=== PATIENT | male | born 1985 | race Caucasian/White ===

== ENCOUNTER 2020-12-29 16:10 | Emergency (ER) | payer OTHER, SELFPAY ==
--- NOTE | ~2020-12-29 | CT_ITS ---
EXAMINATION: CT ANGIOGRAM OF THE CHEST WITH AND WITHOUT CONTRAST (CT PULMONARY ANGIOGRAM FOR PE) CLINICAL INFORMATION: Reason for Exam elevated D-dimer. Rule out PE, sob x 2 days COMPARISON: Chest radiograph earlier today TECHNIQUE: Prior to contrast administration, noncontrast localization images were obtained. Subsequently, multidetector volumetric imaging was performed from the thoracic inlet to below the diaphragms following the administration of 65 mL Omnipaque 350 intravenous contrast. No contrast reaction reported Sagittal, coronal, and MIP oblique sagittal reformatted images were obtained on the CT workstation, uploaded to PACS, and reviewed. This CT examination was performed using dose optimization techniques as appropriate, variously including the following: *Automated exposure control *Adjustment of mA and/or kV according to patient size (this includes techniques or standardized protocols for targeted exams where dose is matched to indication/reason for exam; i.e. extremities or head) *Use of iterative reconstruction technique Total exam dose-length product 277 mGy-cm FINDINGS: QUALITY OF STUDY/CONTRAST BOLUS: Satisfactory. PULMONARY ARTERIES: No central or segmental pulmonary emboli. THORACIC AORTA: No aneurysm or dissection. LUNG: No focal consolidation, nodules or masses. PLEURA: No pleural effusion or pneumothorax. MEDIASTINUM: Normal heart size. No pericardial effusion. No hilar or mediastinal lymphadenopathy. No evidence of septal bowing or right heart strain. CHEST WALL/AXILLA: No axillary or internal mammary lymphadenopathy. OSSEOUS STRUCTURES: No acute or suspicious osseous abnormality. UPPER ABDOMEN: Unremarkable. No reflux of contrast into the hepatic veins to suggest elevated right heart pressures. CT/CT angio chest PE protocol IMPRESSION: No evidence of pulmonary emboli VTE: negative
--- NOTE | ~2020-12-29 | XR_ITS ---
EXAMINATION: XR CHEST CLINICAL INFORMATION: Shortness of breath COMPARISON: None TECHNIQUE: Frontal view of the chest was obtained. FINDINGS: No significant abnormality is noted involving the heart, lungs, mediastinum, bony thorax or soft tissues. XR/XR chest 1V IMPRESSION: Unremarkable examination.
[2020-12-29 16:40] VITALS: BP 158/99; PULSE 72; RESP 16; TEMP 37.6; O2SAT 98; BMI 28.3
--- NOTE | 2020-12-29 20:01 | ECG_ITS ---
Test Reason : DYSPNEA Blood Pressure : / mmHG Vent. Rate : 065 BPM Atrial Rate : 065 BPM P-R Int : 124 ms QRS Dur : 096 ms QT Int : 416 ms P-R-T Axes : -37 042 033 degrees QTc Int : 432 ms Normal sinus rhythm Normal ECG When compared with ECG of 10-JUL-2019 05:57, Vent. rate has decreased BY 39 BPM Referred By: Donaldo Witt Electronically Signed By:LAUREL VOGT
[2020-12-29 21:40] LABS: MANUAL DIFF FLAG NO
[2020-12-29 21:46] LABS: Basophils Absolute Auto 0.1 X10*3/uL (0.0-0.2); Basophils Percent Auto 1.1 % (0-2); Eosinophils Absolute Auto 0.1 X10*3/uL (0.0-0.4); Eosinophils Percent Auto 1.1 % (0-4); Hematocrit 43.7 % (42-52); Hemoglobin 14.8 g/dl (14.0-18.0); Imm Gran Abs Auto 0.02 X10*3/uL (0.00-0.03); Imm Gran Pct Auto 0.2 % (0.0-0.4); Lymphocytes Absolute Auto 2.8 X10*3/uL (1.2-4.9); Lymphocytes Percent Auto 33.2 % (20-40); Mean Corpuscular HGB Conc 33.9 g/dl (31.0-36.0); Mean Corpuscular Hemoglobin 29.8 pg (27.0-33.0); Mean Corpuscular Volume 87.9 fL (80-98); Monocytes Absolute Auto 0.8 X10*3/uL (0.1-1.2); Monocytes Percent Auto 8.9 % (2-11); Neutrophils Absolute Auto 4.7 X10*3/uL (2.0-8.3); Neutrophils Percent Auto 55.5 % (45-73); Platelet Count 474 X10*3/uL (160-400); Red Blood Count 4.97 X10*6/uL (4.60-5.80); Red Cell Distribution Width 14.4 % (11.0-16.0); White Blood Count 8.4 X10*3/uL (4.8-10.8)
[2020-12-29 21:52] LABS: Prothrombin Time 11.4 SEC (9.9-13.0)
[2020-12-29 21:54] LABS: Partial Thromboplastin Time 32.2 SEC (24.1-38.0)
[2020-12-29 21:54] LABS: Appearance Urine CLEAR; Color Urine YELLOW; Glucose Urine UA NEG (NEG); Leukocyte Esterase Urine NEG (NEG); Nitrite Urine NEG (NEG); PH 6.5 (5.0-8.0); Urine Blood NEG (NEG); Urine Ketones >=80 MG/DL (NEG); Urine Protein NEG (NEG-TRACE)
[2020-12-29 21:55] LABS: D Dimer 363 NG/ML
[2020-12-29 21:58] LABS: COVID-19 Test Negative (Negative)
[2020-12-29 22:02] LABS: Alanine Aminotransferase 29 U/L (0-40); Alkaline Phosphatase 117 U/L (39-117); Anion Gap 19 (12-20); Aspartate Amino Transferase 29 U/L (5-37); Bilirubin Direct 0.3 mg/dL (0.0-0.5); Bilirubin Total 0.8 mg/dL (0.0-1.0); Blood Urea Nitrogen 7 mg/dL (9-16); Calcium 10.3 mg/dL (8.4-10.2); Carbon Dioxide 27 mmol/L (22-29); Chloride 99 mmol/L (96-108); Creatinine Clr Calc Pharmacy 117.8; Estimated Glomerular Filt Rate > 60; Glucose Random 77 mg/dL (60-115); Lipase 17 U/L (8-78); Sodium 140 mmol/L (135-145); Total Protein 7.8 g/dL (6.5-8.0)
[2020-12-29 22:07] LABS: B Type Natriuretic Peptide < 10 pg/mL (<100); Troponin-I High Sensitivity < 3.5 ng/L (<3.5-35.0)
[2020-12-29 22:45] VITALS: BP 172/107; PULSE 61; O2SAT 98
[2020-12-29] MEDS: LORazepam 1 MG TABLET PO (23:02)
[2020-12-29] MEDS: iohexoL 350 MG/ML 100 ML INFUS..BTL 65 ML IV (23:21)
--- NOTE | 2020-12-29 23:32 | ECG_ITS ---
Test Reason : REPEAT Blood Pressure : / mmHG Vent. Rate : 061 BPM Atrial Rate : 061 BPM P-R Int : 164 ms QRS Dur : 094 ms QT Int : 426 ms P-R-T Axes : 030 031 029 degrees QTc Int : 428 ms Normal sinus rhythm Normal ECG When compared with ECG of 29-DEC-2020 20:49, No significant change was found Referred By: Donaldo Witt Electronically Signed By:LAUREL VOGT
--- NOTE | 2020-12-29 23:41 | ED.GENADULT ---
HPI - General Adult General Chief complaint: Dyspnea Stated complaint: SOB/Body aches Time Seen by Provider: 12/29/20 19:53 Source: patient Mode of arrival: ambulatory Limitations: no limitations History of Present Illness HPI narrative: Patient state SOB for 2 days describes as anxiety and feels like he has to catch his breath. patient admits stop drinking alcohol for at least a day, but does not want detox. patient thinks he is just anxious, but wants his SOB to be evalauted. patient admits to past medical history of anxiety. Patient states no chest pain,calf pain, fever, leg swelling or chills. Related Data Previous Rx's Medication Instructions Recorded hydroxyzine HCl 25 mg tablet 25 mg PO TID PRN #21 tab 12/29/20 Allergies Allergy/AdvReac Type Severity Reaction Status Date / Time No Known Allergies Allergy Unverified 12/25/19 16:45 Review of Systems Review of Systems: Yes all other systems are reviewed and are negative Constitutional: Constitutional: Reports as per HPI and Reports no additional constitutional complaints Eyes: Eyes: Reports as per HPI and Reports no additional eye complaints ENT: Reports system reviewed and no additional complaints, except as documented and Reports as per HPI Cardiovascular: Cardiovascular: Reports as per HPI, Reports no additional cardiovascular complaints and Reports dyspnea Respiratory: Respiratory: Reports as per HPI, Reports no additional respiratory complaints and Reports dyspnea Gastrointestinal: Gastrointestinal: Reports as per HPI, Reports no additional gastrointestinal complaints and Reports nausea Musculoskeletal: Musculoskeletal: Reports no additional musculoskeletal complaints and Reports as per HPI Integumentary/Breasts: Skin/Breast: Reports system reviewed and no additional complaints, except as docu and Reports as per HPI Neurologic: Reports system reviewed and no additional complaints, except as documented and Reports as per HPI Comments: anxeity [facility] Social History Social History Patient Tobacco Use Status: Never used Tobacco Advance Directives: No Advance Directives Information Provided: Yes Physical Exam Vital Signs: Vital Signs: Last Vital Signs Temp 99.6 F 12/29/20 16:40 Pulse 61 12/29/20 22:45 Resp 16 12/29/20 16:40 BP 172/107 H 12/29/20 22:45 Pulse Ox 98 12/29/20 22:45 Body Mass Index 28.3 Const: General: cooperative, healthy appearing, comfortable, no acute distress, well developed, alert, awake and Physically active Orientation/consciousness: patient oriented x3 HENMT: Head: Yes normal to inspection, Yes No palpable skull fracture present, Yes normocephalic and Yes atraumatic Eyes: General: appearance normal, both eyes and all related structures Neck: Neck: Yes normal visual inspection, Yes full ROM, Yes no lymphadenopathy, Yes no meningeal signs, Yes trachea midline, Yes supple and No tender Chest: Chest palpation & inspection: normal inspection of the chest and normal palpation of entire chest wall Resp: Effort & Inspection: normal respiratory effort and able to speak in complete sentences Auscultation: clear to auscultation bilaterally Cardio: Jugular venous distension: no JVD Heart sounds: S1 normal heart sound present and S2 normal heart sound present GI: Inspection: Yes normal to inspection and No abdominal wall ecchymosis Palpation (GI): Soft to palpation, not firm, nontender, no guarding and not rigid : General: No CVA tenderness and Yes no CVA tenderness Back/Spine/Pelvis: Back: no CVA tenderness, No CVA tenderness and No back tenderness Skin: General skin exam: no rashes or lesions noted and elasticity normal Neuro: General: patient oriented x3, gait normal, no meningeal signs and CN's II-XI intact bilaterally Cranial nerves: Yes CN's II-XII intact bilaterally Extrem: Other: lower extremities negative for swelling, calf pain, or pitting edema. negative tremors of extremities. General: Yes normal to inspection and Yes full ROM Psych: Appearance: grossly normal, well kempt and not disheveled Course Course Course Narrative: Atypical presentation of SOB, most likely anxiety will do labs. Reevaluation(s) Reevaluation #1: EKG negatmive. Troponin negative. BNP negative. Covid negative. UA normal. labs normal, except D-dimer. patient not in respiratory distress. D-dimer elevated. Sent for Chest CTA. Time: 23:49 Reevaluation #2: CHest CTA came back negative. howardn does not want any detox program presently. Chest CT came back negative for PE. Patient states he felt better and less anxious after receiving ativan. patient will follow up with PCP. Time: 00:08 Medical Decision Making MDM Narrative Medical decision making narrative: Anxiety Lab Data Result diagrams: 12/29/20 21:34 12/29/20 21:34 Labs: Lab Results 12/29/20 12/29/2021 Range/Units 21:34 21:34 21:34 WBC 8.4 (4.8-10.8) X10*3/uL RBC 4.97 (4.60-5.80) X10*6/uL Hgb 14.8 (14.0-18.0) g/dl Hct 43.7 (42-52) % MCV 87.9 (80-98) fL MCH 29.8 (27.0-33.0) pg MCHC 33.9 (31.0-36.0) g/dl RDW 14.4 (11.0-16.0) % Plt Count 474 H (160-400) X10*3/uL MPV 9.0 L (9.4-12.4) fL Immature Gran % (Auto) 0.2 (0.0-0.4) % Neut % (Auto) 55.5 (45-73) % Lymph % (Auto) 33.2 (20-40) % Harvey % (Auto) 8.9 (2-11) % Eos % (Auto) 1.1 (0-4) % Baso % (Auto) 1.1 (0-2) % Lymph # (Auto) 2.8 (1.2-4.9) X10*3/uL Harvey # (Auto) 0.8 (0.1-1.2) X10*3/uL Eos # (Auto) 0.1 (0.0-0.4) X10*3/uL Baso # (Auto) 0.1 (0.0-0.2) X10*3/uL Abs Immat Gran (auto) 0.02 (0.00-0.03) X10*3/uL Absolute Neuts (auto) 4.7 (2.0-8.3) X10*3/uL Absolute Nucleated RBC 0.000 (0.0-0.012) X10*3/uL Nucleated RBC % (auto) 0.0 (0.0-0.2) /100WBC PT (9.9-13.0) SEC INR (0.9-1.1) APTT (24.1-38.0) SEC D-Dimer NG/ML Sodium 140 (135-145) mmol/L Potassium 5.0 (3.3-5.1) mmol/L Chloride 99 (96-108) mmol/L Carbon Dioxide 27 (22-29) mmol/L Anion Gap 19 (12-20) BUN 7 L (9-16) mg/dL Creatinine 0.83 (0.5-1.4) mg/dL Estim Creat Clear Calc 117.8 Estimated GFR > 60 Random Glucose 77 (60-115) mg/dL Calcium 10.3 H (8.4-10.2) mg/dL Total Bilirubin (0.0-1.0) mg/dL Direct Bilirubin (0.0-0.5) mg/dL AST (5-37) U/L ALT (0-40) U/L Alkaline Phosphatase (39-117) U/L Troponin I High Sens < 3.5 (<3.5-35.0) ng/L B-Natriuretic Peptide < 10 (<100) pg/mL Total Protein (6.5-8.0) g/dL Albumin (3.5-5.0) g/dL Lipase (8-78) U/L Urine Color Urine Appearance Urine pH (5.0-8.0) Ur Specific [place] (1.005-1.025) Urine Protein (NEG-TRACE) MG/DL Urine Glucose (UA) (NEG) MG/DL Urine Ketones (NEG) MG/DL Urine Blood (NEG) Urine Nitrite (NEG) Ur Leukocyte Esterase (NEG) COVID-19 (ROSI) (Negative) COVID-19 Clin Com 12/29/20 12/29/20 12/29/20 Range/Units 21:34 21:34 21:34 WBC (4.8-10.8) X10*3/uL RBC (4.60-5.80) X10*6/uL Hgb (14.0-18.0) g/dl Hct (42-52) % MCV (80-98) fL MCH (27.0-33.0) pg MCHC (31.0-36.0) g/dl RDW (11.0-16.0) % Plt Count (160-400) X10*3/uL MPV (9.4-12.4) fL Immature Gran % (Auto) (0.0-0.4) % Neut % (Auto) (45-73) % Lymph % (Auto) (20-40) % Harvey % (Auto) (2-11) % Eos % (Auto) (0-4) % Baso % (Auto) (0-2) % Lymph # (Auto) (1.2-4.9) X10*3/uL Harvey # (Auto) (0.1-1.2) X10*3/uL Eos # (Auto) (0.0-0.4) X10*3/uL Baso # (Auto) (0.0-0.2) X10*3/uL Abs Immat Gran (auto) (0.00-0.03) X10*3/uL Absolute Neuts (auto) (2.0-8.3) X10*3/uL Absolute Nucleated RBC (0.0-0.012) X10*3/uL Nucleated RBC % (auto) (0.0-0.2) /100WBC PT 11.4 (9.9-13.0) SEC INR 1.0 (0.9-1.1) APTT 32.2 (24.1-38.0) SEC D-Dimer 363 NG/ML Sodium (135-145) mmol/L Potassium (3.3-5.1) mmol/L Chloride (96-108) mmol/L Carbon Dioxide (22-29) mmol/L Anion Gap (12-20) BUN (9-16) mg/dL Creatinine (0.5-1.4) mg/dL Estim Creat Clear Calc Estimated GFR Random Glucose (60-115) mg/dL Calcium (8.4-10.2) mg/dL Total Bilirubin 0.8 (0.0-1.0) mg/dL Direct Bilirubin 0.3 (0.0-0.5) mg/dL AST 29 (5-37) U/L ALT 29 (0-40) U/L Alkaline Phosphatase 117 (39-117) U/L Troponin I High Sens (<3.5-35.0) ng/L B-Natriuretic Peptide (<100) pg/mL Total Protein 7.8 (6.5-8.0) g/dL Albumin 5.0 (3.5-5.0) g/dL Lipase 17 (8-78) U/L Urine Color Urine Appearance Urine pH (5.0-8.0) Ur Specific [place] (1.005-1.025) Urine Protein (NEG-TRACE) MG/DL Urine Glucose (UA) (NEG) MG/DL Urine Ketones (NEG) MG/DL Urine Blood (NEG) Urine Nitrite (NEG) Ur Leukocyte Esterase (NEG) COVID-19 (ROSI) Negative (Negative) COVID-19 Clin Com See Note 12/29/20 Range/Units 21:44 WBC (4.8-10.8) X10*3/uL RBC (4.60-5.80) X10*6/uL Hgb (14.0-18.0) g/dl Hct (42-52) % MCV (80-98) fL MCH (27.0-33.0) pg MCHC (31.0-36.0) g/dl RDW (11.0-16.0) % Plt Count (160-400) X10*3/uL MPV (9.4-12.4) fL Immature Gran % (Auto) (0.0-0.4) % Neut % (Auto) (45-73) % Lymph % (Auto) (20-40) % Harvey % (Auto) (2-11) % Eos % (Auto) (0-4) % Baso % (Auto) (0-2) % Lymph # (Auto) (1.2-4.9) X10*3/uL [place] # (Auto) (0.1-1.2) X10*3/uL Eos # (Auto) (0.0-0.4) X10*3/uL Baso # (Auto) (0.0-0.2) X10*3/uL Abs Immat Gran (auto) (0.00-0.03) X10*3/uL Absolute Neuts (auto) (2.0-8.3) X10*3/uL Absolute Nucleated RBC (0.0-0.012) X10*3/uL Nucleated RBC % (auto) (0.0-0.2) /100WBC PT (9.9-13.0) SEC INR (0.9-1.1) APTT (24.1-38.0) SEC D-Dimer NG/ML Sodium (135-145) mmol/L Potassium (3.3-5.1) mmol/L Chloride (96-108) mmol/L Carbon Dioxide (22-29) mmol/L Anion Gap (12-20) BUN (9-16) mg/dL Creatinine (0.5-1.4) mg/dL Estim Creat Clear Calc Estimated GFR Random Glucose (60-115) mg/dL Calcium (8.4-10.2) mg/dL Total Bilirubin (0.0-1.0) mg/dL Direct Bilirubin (0.0-0.5) mg/dL AST (5-37) U/L ALT (0-40) U/L Alkaline Phosphatase (39-117) U/L Troponin I High Sens (<3.5-35.0) ng/L B-Natriuretic Peptide (<100) pg/mL Total Protein (6.5-8.0) g/dL Albumin (3.5-5.0) g/dL Lipase (8-78) U/L Urine Color YELLOW Urine Appearance CLEAR Urine pH 6.5 (5.0-8.0) Ur Specific [place] 1.020 (1.005-1.025) Urine Protein NEG (NEG-TRACE) MG/DL Urine Glucose (UA) NEG (NEG) MG/DL Urine Ketones >=80 (NEG) MG/DL Urine Blood NEG (NEG) Urine Nitrite NEG (NEG) Ur Leukocyte Esterase NEG (NEG) COVID-19 (ROSI) (Negative) COVID-19 Clin Com ECG Data Interpretation: Normal Sinus rhythm. Ventr rate 61, WI interval 164, QRS 94, QTC 428. negative stemi Discharge Plan Discharge Clinical Impression: Anxiety Patient Disposition: Home, Self-Care Instructions: Chest Pain (ED), Anxiety (ED) Additional Instructions: Your blood work, EKG and imaging came back negative heart attack, pulmonary Embolus, covid, pneumonia, or heart failure. REturn to the ED for chest pain, shortness of breath, fever, chills, leg swelling, calf pain, dizziness, or any other concerning symptoms. please follow up with PCP fir anxiety and referral to detox program Prescriptions: New hydroxyzine HCl 25 mg tablet 25 mg PO TID PRN (Reason: anxiety) Qty: 21 RF: 0 Print Language: Tamazight
== END 2020-12-30 00:20 | disposition home or self-care (01) ==
PROVIDERS: Physician Assistant; Emergency Provider Emergency Medicine; PCP Internal Medicine
DX: F41.1 Generalized anxiety disorder (principal); F43.0 Acute stress reaction; R06.02 Shortness of breath; Z20.822 Contact with and (suspected) exposure to COVID-19; Z79.899 Other long term (current) drug therapy
CPT/HCPCS: 36415; 71045; 71275; 80048; 80076; 81003; 83690; 83880; 84484; 85025; 85379; 85610; 85730; 87635; 93005; 99284; Q9967

== ENCOUNTER 2021-02-12 22:49 | Emergency (ER) | payer OTHER, SELFPAY ==
--- NOTE | ~2021-02-12 | CT_ITS ---
EXAMINATION: HEAD CT WITHOUT CONTRAST CERVICAL SPINE CT WITHOUT CONTRAST CLINICAL INFORMATION: Fall. COMPARISON: None. TECHNIQUE: Contiguous axial imaging of the head was performed without the administration of IV contrast. Axial multidetector volumetric images were also performed through the cervical spine without intravenous contrast. Multiplanar reconstructed images in coronal and sagittal orientations were submitted. This CT examination was performed using dose optimization techniques as appropriate, variously including the following: *Automated exposure control *Adjustment of mA and/or kV according to patient size (this includes techniques or standardized protocols for targeted exams where dose is matched to indication/reason for exam; i.e. extremities or head) *Use of iterative reconstruction technique DOSE: 1187 mGy-cm FINDINGS: HEAD: There is no evidence of acute intracranial hemorrhage or territorial infarction. No abnormal mass-effect or midline shift. No extra-axial fluid collections. [place] to white matter differentiation is well preserved. The ventricles are normal in size and configuration. There is no abnormal attenuation within the brain parenchyma. Skin brigitte are present over the right scalp posterosuperiorly. No underlying hematoma. Underlying calvarium is intact. No fractures. The sinuses and mastoid air cells are clear. CERVICAL SPINE: Vertebral body heights are normal. No fractures of the vertebral bodies or posterior elements. Vertebral alignment is normal. No subluxation. The craniocervical and atlantoaxial articulations are normal. Intervertebral disc heights are normal. No significant degenerative disc disease. Facet joints are normal. Central canal and neural foramina appear patent without appreciable stenoses. No significant paravertebral soft tissue swelling. Atherosclerotic calcifications are present in the carotid arteries. Imaged portions of the lung apices are clear. CT/CT cervical spine wo con IMPRESSION: 1. No acute intracranial pathology. 2. No acute fracture or malalignment in the cervical spine.
[2021-02-12 23:43] VITALS: BP 139/87; PULSE 82; RESP 18; TEMP 36.2; O2SAT 97; BMI 27.9
[2021-02-13] MEDS: Diphth,Pertus(ACell),Tet Adult 0.5 ML SYRINGE IM (00:59)
--- NOTE | 2021-02-13 01:10 | ED.WOUNDLAC ---
HPI - Wound/Laceration General Chief Complaint: Wound/Laceration Stated Complaint: Fall/Head lac Source: patient Mode of arrival: ambulatory Limitations: no limitations History of Present Illness HPI narrative: patient states while drinking he and his girlfriend was trying to have sex and he tripped over pants and hit his head which caused laceration. patient denies loss of conscisouess, Related Data Previous Rx's Medication Instructions Recorded hydroxyzine HCl 25 mg tablet 25 mg PO TID PRN #21 tab 12/29/20 Allergies Allergy/AdvReac Type Severity Reaction Status Date / Time No Known Allergies Allergy Unverified 12/25/19 16:45 Review of Systems Review of Systems: Yes all other systems are reviewed and are negative Constitutional: Constitutional: Reports as per HPI and Reports no additional constitutional complaints Comments: head laceration Eyes: Eyes: Reports as per HPI and Reports no additional eye complaints ENT: Reports system reviewed and no additional complaints, except as documented and Reports as per HPI Cardiovascular: Cardiovascular: Reports as per HPI and Reports no additional cardiovascular complaints Respiratory: Respiratory: Reports as per HPI and Reports no additional respiratory complaints Gastrointestinal: Gastrointestinal: Reports as per HPI and Reports no additional gastrointestinal complaints Genitourinary: Genitourinary: Reports no additional male genitourinary complaints and Reports as per HPI Musculoskeletal: Musculoskeletal: Reports no additional musculoskeletal complaints and Reports as per HPI Neurologic: Reports system reviewed and no additional complaints, except as documented and Reports as per HPI Psychiatric: Psychiatric: Reports no additional psychiatric complaints and Reports as per HPI [facility] Social History Social History Patient Tobacco Use Status: Never used Tobacco Advance Directives: No Advance Directives Information Provided: No Physical Exam Vital Signs: Vital Signs: Last Vital Signs Temp 97.2 F 02/12/21 23:43 Pulse 82 02/12/21 23:43 Resp 18 02/12/21 23:43 BP 139/87 02/12/21 23:43 Pulse Ox 97 02/12/21 23:43 Body Mass Index 27.9 Const: General: cooperative, healthy appearing, comfortable, no acute distress, well developed, alert, awake and Physically active Orientation/consciousness: oriented to time and patient oriented x3 HENMT: Head: Yes normal to inspection, Yes No palpable skull fracture present, Yes normocephalic and Yes laceration (posterior ) Head images: 1. laceration with bleeding. no skull exposure Eyes: General: appearance normal, both eyes and all related structures Neck: Neck: Yes normal visual inspection, Yes full ROM, Yes no lymphadenopathy, Yes no meningeal signs, Yes trachea midline, Yes supple and No tender Chest: Chest palpation & inspection: normal inspection of the chest and normal palpation of entire chest wall Resp: Effort & Inspection: normal respiratory effort and able to speak in complete sentences Auscultation: clear to auscultation bilaterally Cardio: Jugular venous distension: no JVD Heart sounds: S1 normal heart sound present and S2 normal heart sound present GI: Inspection: Yes normal to inspection and No abdominal wall ecchymosis Palpation (GI): Soft to palpation, not firm, nontender, no guarding and not rigid : General: No CVA tenderness and Yes no CVA tenderness Back/Spine/Pelvis: Back: no CVA tenderness, No CVA tenderness and No back tenderness Skin: General skin exam: no rashes or lesions noted and elasticity normal Neuro: General: oriented to time, patient oriented x3, no meningeal signs and CN's II-XI intact bilaterally Cranial nerves: Yes CN's II-XII intact bilaterally Extrem: General: Yes normal to inspection and Yes full ROM Psych: Appearance: grossly normal, well kempt and not disheveled Course Course Course Narrative: patient to have laceration reparied and imaging. Reevaluation(s) Reevaluation #1: laceration in scalp reparied with 4 brigitte. Patient received tetanus injection. patient head CT/Cervical CT was normal. patient is A0x3 with normal gait. patient discharged with girlfreidn MDM - Wound/Laceration MDM Narrative Medical decision making narrative: Head laceration Discharge Plan Discharge Clinical Impression: Laceration of head Patient Disposition: Home, Self-Care Instructions: Staple Care (ED), Head Laceration (ED) Additional Instructions: Return to the ED in 10 days for staple removal. Return to ED for any headache, fever, chills, nausea, vomiting, pus discharge, altered mental status, or any other concerning symptoms. Please follow up with PCP Prescriptions: No Action hydroxyzine HCl 25 mg tablet 25 mg PO TID PRN (Reason: anxiety) Qty: 21 RF: 0 Interventions: ED Discharge Assessment Last Done: 02/13/21 01:24 Discharge Date/Time: 02/13/21 01:28 EST Print Language: Irish
== END 2021-02-13 01:28 | disposition home or self-care (01) ==
PROVIDERS: Emergency Provider Internal Medicine
DX: S01.01XA Laceration without foreign body of scalp, initial encounter (principal); W01.190A Fall on same level from slipping, tripping and stumbling with subsequent striking against furniture, initial encounter; Y93.89 Activity, other specified; Y92.013 Bedroom of single-family (private) house as the place of occurrence of the external cause; Y99.9 Unspecified external cause status
CPT/HCPCS: 12001; 70450; 72125; 90471; 90715; 99284

== ENCOUNTER 2021-04-30 17:55 | Emergency (ER) | payer OTHER, SELFPAY ==
--- NOTE | ~2021-04-30 | CT_ITS ---
EXAMINATION: CT HEAD WITHOUT CONTRAST CT CERVICAL SPINE WITHOUT CONTRAST CLINICAL INFORMATION: History of alcohol use. COMPARISON: CT head and cervical spine dated from 02/13/2021. CTA of the chest dated from 12/29/2020. TECHNIQUE: Contiguous axial imaging was performed from the skull base to vertex without intravenous administration of contrast. Contiguous axial imaging was performed from the upper chest through the skull base without intravenous administration of contrast. Coronal and sagittal reformats were obtained at the acquisition workstation. This CT examination was performed using dose optimization techniques as appropriate, variously including the following: *Automated exposure control *Adjustment of mA and/or kV according to patient size (this includes techniques or standardized protocols for targeted exams where dose is matched to indication/reason for exam; i.e. extremities or head) *Use of iterative reconstruction technique DLP: 470 mGy-cm FINDINGS: Head: There is no evidence of acute intracranial hemorrhage or edematous territorial infarction. There is no abnormal attenuation within the brain parenchyma. Limon-white matter differentiation is preserved. The ventricles are normal in size and configuration. No evidence for obstructive hydrocephalus. No abnormal mass effect or midline shift. No extra-axial fluid collections. No acute soft tissue or osseous abnormalities. The mastoid air cells and paranasal sinuses are clear. Cervical Spine: The atlantooccipital and atlantoaxial articulations remain well aligned. Straightening of the normal cervical lordosis. Otherwise, there is anatomic alignment of the vertebral bodies and posterior elements. No evidence of acute fracture or subluxation. The vertebral body heights and disc spaces are maintained. There is no prevertebral soft tissue swelling. The thyroid gland and remaining cervical soft tissues are normal in appearance. A 0.5 cm pulmonary nodule in the right upper lobe (12:295) is unchanged. CT/CT cervical spine wo con IMPRESSION: No acute intracranial pathology. No acute cervical spinal fractures or malalignment.
--- NOTE | 2021-04-30 18:48 | ED.GENADULT ---
HPI - General Adult General Chief complaint: ETOH/Substance Use Stated complaint: etoh Time Seen by Provider: 04/30/21 18:37 Source: patient Mode of arrival: ambulatory Limitations: no limitations History of Present Illness HPI narrative: 35-year-old male brought to ED for drinking alcohol. Patient admits to drinking 7 nips of alcohol. As per EMS patient was found on the street. Patient unsure if he fell. Patient does not want detox. Patient states no other physical complaints. Related Data Previous Rx's Medication Instructions Recorded hydroxyzine HCl 25 mg tablet 25 mg PO TID PRN #21 tab 12/29/20 Allergies Allergy/AdvReac Type Severity Reaction Status Date / Time No Known Allergies Allergy Unverified 12/25/19 16:45 Review of Systems Review of Systems: ALcohol on breath Yes all other systems are reviewed and are negative [facility] Social History Social History Patient Tobacco Use Status: Never used Tobacco Advance Directives: No Physical Exam Vital Signs: Vital Signs: Last Vital Signs Pulse 101 H 04/30/21 19:07 Resp 18 04/30/21 19:07 BP 160/100 H 04/30/21 19:07 Pulse Ox 97 04/30/21 19:07 BMI result Body Mass Index 27.4 Const: General: cooperative, healthy appearing, comfortable, no acute distress, well developed, alert, awake and Physically active Orientation/consciousness: patient oriented x3 HENMT: Head: Yes normal to inspection, Yes No palpable skull fracture present, Yes normocephalic and Yes atraumatic Eyes: General: appearance normal, both eyes and all related structures Neck: Neck: Yes normal visual inspection, Yes full ROM, Yes no lymphadenopathy, Yes no meningeal signs, Yes trachea midline, Yes supple, No anterior neck swelling and No tender Chest: Chest palpation & inspection: normal inspection of the chest and normal palpation of entire chest wall Resp: Effort & Inspection: normal respiratory effort and able to speak in complete sentences Cardio: Jugular venous distension: no JVD Heart sounds: S1 normal heart sound present and S2 normal heart sound present GI: Inspection: Yes normal to inspection and No abdominal wall ecchymosis Palpation (GI): Soft to palpation, not firm, nontender, no guarding, not rigid and hepatosplenomegaly present : General: No CVA tenderness and Yes no CVA tenderness Back/Spine/Pelvis: Back: no CVA tenderness, No CVA tenderness and No back tenderness Skin: General skin exam: no rashes or lesions noted and elasticity normal Neuro: Other: Alcohol on breath. patient presently is A0x3. NO neuro deficitis General: patient oriented x3, gait normal, no meningeal signs and CN's II-XI intact bilaterally Cranial nerves: Yes CN's II-XII intact bilaterally Extrem: General: Yes normal to inspection and Yes full ROM Psych: Appearance: grossly normal, well kempt and not disheveled Course Course Course Narrative: Patient initially was not agreeable for imaging of head and neck. Patient was informed to his due to him drinking and being found on the ground most likely he fell and not remembered. After speaking to patient patient agreeable to imaging. Patient already receiving fluids that was placed by EMS. Reevaluation(s) Reevaluation #1: Patient imaging came back normal and negative for any fractures/brain bleed. Patient presently alert oriented x3. Detox was offered for patient to talk with assistant basketball coach or care team for detox placement for alcohol abuse but patient refused. Patient states he has a bed tomorrow in detox [facility]. Patient states he has bed for the morning. Patient's father coming to pick him up. I spoke with patient's father who states patient needs detox program and I agree but cannot hold patient againsts his will. Patient is not suicidal or homicidal. Patient alert oriented x3. It was discussed with patient's father to order section 35 which will force patient to go into detox. Father will fruit or nut picker patient and begin process. Patient alert oriented x3 on discharge. Time: 20:49 Medical Decision Making [facility] Narrative Medical decision making narrative: Alcohol abuse Discharge Plan Discharge Clinical Impression: Alcohol abuse Patient Disposition: Home, Self-Care Instructions: Abuse of Alcohol (ED) Additional Instructions: Your images came back normal. Please follow up with Detox program you have a bed for in the morning. Return to the ED immediatley for any headache, abdominal pain, nausea, vomitting, chest pain, headache, rectal bleeding, slurred speech, facial droop, loss of vision, tremors, paralysis of extremities, suicidal/homicidal ideation, or any other concnerning symptoms. ALso follow up with PCP. Prescriptions: No Action hydroxyzine HCl 25 mg tablet 25 mg PO TID PRN (Reason: anxiety) Qty: 21 RF: 0 Interventions: ED Discharge Assessment Last Done: 04/30/21 21:05 Discharge Date/Time: 04/30/21 21:08 Print Language: Arabic
[2021-04-30 19:07] VITALS: BP 160/100; BP 178/123; PULSE 101; PULSE 110; RESP 18; O2SAT 100; O2SAT 97; BMI 27.4
== END 2021-04-30 21:08 | disposition home or self-care (01) ==
PROVIDERS: Emergency Provider Emergency Medicine Emergency Medical Services
DX: F10.10 Alcohol abuse, uncomplicated (principal); Y90.9 Presence of alcohol in blood, level not specified; Z91.81 History of falling
CPT/HCPCS: 70450; 72125; 99283; 99284

== ENCOUNTER 2021-07-06 13:46 | Emergency (ER) | payer OTHER, SELFPAY ==
--- NOTE | 2021-07-06 14:24 | ED.ALCOHOL ---
HPI - Alcohol General Chief Complaint: ETOH/Substance Use Stated Complaint: ETOH Time Seen by Provider: 07/06/21 13:55 Source: patient Mode of arrival: ambulatory Limitations: no limitations History of Present Illness HPI narrative: Patient comes to emergency room, sent by his family. Patient got intoxicated, police department was called by the patient's family, brought to the ED. At this time, the patient's family is in the court trying to issue a Section 35. Patient complaining of nausea, otherwise has no complaints. Patient denies any falls Related Data Previous Rx's Medication Instructions Recorded hydroxyzine HCl 25 mg tablet 25 mg PO TID PRN #21 tab 12/29/20 Allergies Allergy/AdvReac Type Severity Reaction Status Date / Time No Known Allergies Allergy Unverified 12/25/19 16:45 Review of Systems Review of Systems: Constitutional : No Weight loss, No Fever, No Chills, No Night Sweats, No Fatigue, No Malaise ENT/Mouth : No Hearing loss, No Ear Pain, No Nasal Congestion, No Sinus Pain, No Hoarseness, No sore throat, No Rhinorrhea, No Swallowing Difficulty Eyes: No Eye Pain, No Swelling, No Redness, No Foreign Body, No Discharge, No Vision Changes Cardiovascular : No Chest Pain, No SOB, No Dyspnea on Exertion, No Orthopnea, No Edema, No Palpitations Respiratory : No Cough, No Sputum, No Wheezing, No Smoke Exposure, No Dyspnea Gastrointestinal : Complaining of mild Nausea, No Vomiting, No Diarrhea, No Constipation, No abdominal Pain, No Hematochezia, No Melena Genitourinary : no irregular bleeding, No Dysuria, No Urinary Frequency, No Hematuria, No Urinary Incontinence, No Urgency, No Flank Pain, No Urinary Flow Changes, No Hesitancy Musculoskeletal : No joint pain, No Myalgias, No Joint Swelling Skin : No Skin Lesions, No rash Neuro : No Weakness, No Numbness, No Paresthesias, No Loss of Consciousness, No Dizziness, No Headache Psych : No Anxiety/Panic, No Depression, No SI/HI/AH/VH, No Social Issues, Heme/Lymph: No Bruising, No Bleeding,No Lymphadenopathy Endocrine : No Polyuria, No Polydipsia, No Temperature Intolerance PMFSH Past Medical History Medical History Alcohol abuse Social History Social History Patient Tobacco Use Status: Never used Tobacco Physical Exam ED Const Other: Appearance: Alert. Oriented X3. No acute distress. Disheveled, intoxicated Eyes: Pupils equal, round and reactive to light. ENT: Pharynx normal. Neck: Normal inspection. Neck supple. No lymph nodes noted. No crepitus CVS: Normal heart rate and rhythm. Pulses normal. Normal S1 and S2 Respiratory: No respiratory distress. Breath sounds normal. No Wheezing. No rales Abdomen: Soft and nontender. No rigidity. No distention. Skin: Skin warm and dry. Normal skin color. Normal skin turgor. Extremities: No lower extremity edema. No Lacerations. No Rash Neuro: Oriented X 3. No motor deficit. No sensory deficit. Moving all extremities. No slurred speech. CN 2 through 12 grossly intact Psych: calm, cooperative, normal affect Course Course Course Narrative: At this time, patient voices no complaints other than feeling nauseous. Patient denies suicidal or homicidal ideation. At this time, patient's family is in the court trying to reassure a Section 35. Physician observation started at 14:35 Discharge Plan Discharge Clinical Impression: Alcoholic intoxication Patient Disposition: Still a Patient Prescriptions: No Action hydroxyzine HCl 25 mg tablet 25 mg PO TID PRN (Reason: anxiety) Qty: 21 0RF
[2021-07-06 14:45] VITALS: BP 149/96; BP 180/100; PULSE 110; PULSE 116; RESP 18; TEMP 37.3; O2SAT 96; O2SAT 98; BMI 26.7
[2021-07-06 14:55] LABS: IDNOW Serial# 16C4AD1C
[2021-07-06 14:56] LABS: COVID-19 Test Negative (Negative)
[2021-07-06 16:24] LABS: MANUAL DIFF FLAG NO
[2021-07-06 16:26] LABS: Basophils Percent Auto 0.5 % (0-2); Hematocrit 40.2 % (42.0-52.0); Hemoglobin 13.7 g/dl (14.0-18.0); Imm Gran Abs Auto 0.03 X10*3/uL (0.00-0.03); Imm Gran Pct Auto 0.4 % (0.0-0.4); Lymphocytes Absolute Auto 1.6 X10*3/uL (1.2-4.9); Lymphocytes Percent Auto 19.2 % (20-40); Mean Corpuscular HGB Conc 34.1 g/dl (31.0-36.0); Mean Corpuscular Hemoglobin 28.8 pg (27.0-33.0); Mean Corpuscular Volume 84.5 fL (80.0-98.0); Monocytes Absolute Auto 0.3 X10*3/uL (0.1-1.2); Neutrophils Absolute Auto 6.3 x10*3/uL (2.0-8.3); Neutrophils Percent Auto 75.9 % (45-73); Platelet Count 169 X10*3/uL (160-400); Red Blood Count 4.76 X10*6/uL (4.60-5.80); Red Cell Distribution Width 14.9 % (11.0-16.0); White Blood Count 8.3 X10*3/uL (4.8-10.8)
[2021-07-06] MEDS: Atorvastatin Calcium 40 MG TABLET PO (16:33)
[2021-07-06] MEDS: lisinopriL 40 MG TABLET PO (16:33)
[2021-07-06] MEDS: atenoloL 100 MG TABLET PO (16:34)
[2021-07-06] MEDS: Sertraline HCL 100 MG TABLET PO (16:34)
[2021-07-06] MEDS: cloNIDine HCL 0.1 MG TABLET PO (16:34)
[2021-07-06 16:43] VITALS: BP 185/103; PULSE 95; RESP 19; TEMP 36.6; O2SAT 100
[2021-07-06 16:48] LABS: Alanine Aminotransferase 70 U/L (0-40); Alkaline Phosphatase 163 U/L (39-117); Anion Gap 27 (12-20); Aspartate Amino Transferase 62 U/L (5-37); Bilirubin Total 0.5 mg/dL (0.0-1.0); Blood Urea Nitrogen 10 mg/dL (9-16); Calcium 8.5 mg/dL (8.4-10.2); Carbon Dioxide 15 mmol/L (22-29); Chloride 93 mmol/L (96-108); Creatinine Clr Calc Pharmacy 132.5; Estimated Glomerular Filt Rate > 60; Glucose Fasting 83 mg/dL (60-99); Potassium 4.5 mmol/L (3.3-5.1); Sodium 130 mmol/L (135-145); Total Protein 8.3 g/dL (6.5-8.0)
[2021-07-06] MEDS: Ondansetron ODT 4 MG TAB.RAPDIS TRANSLINGU (17:26)
[2021-07-06] MEDS: LORazepam 1 MG TABLET 2 MG PO (17:45)
[2021-07-06 18:48] LABS: Ethanol 304 mg/dL
[2021-07-06] MEDS: hydrOXYzine HCL 25 MG TABLET PO (19:02)
== END 2021-07-06 19:04 | disposition home or self-care (01) ==
PROVIDERS: Physician Assistant; Emergency Provider Emergency Medicine
DX: F10.120 Alcohol abuse with intoxication, uncomplicated (principal); Y90.8 Blood alcohol level of 240 mg/100 ml or more; R11.0 Nausea; Z20.822 Contact with and (suspected) exposure to COVID-19; Z79.899 Other long term (current) drug therapy
CPT/HCPCS: 36415; 80053; 82077; 85025; 87635; 99283

== ENCOUNTER 2022-01-03 16:37 | Emergency (ER) | payer OTHER, SELFPAY ==
--- NOTE | ~2022-01-03 | XR_ITS ---
EXAMINATION: XR RIBS, LEFT CLINICAL INFORMATION: Pain. Fall. COMPARISON: None TECHNIQUE: Frontal view of chest. 3 views of the left ribs were obtained. A BB was placed at the lower left ribs. FINDINGS: Lungs are clear. No consolidation, pneumothorax, or pleural effusion. The cardiomediastinal silhouette and pulmonary vasculature are normal. There is a minimally displaced fracture of the anterior lateral left ninth rib and possible fracture nondisplaced of the eighth left lateral rib XR/XR ribs LT min 3V w CXR1V IMPRESSION: Fracture of the lateral left ninth rib. Possible nondisplaced fracture of the left eighth rib as well.
--- NOTE | 2022-01-03 16:49 | ECG_ITS ---
Test Reason : FALL Blood Pressure : / mmHG Vent. Rate : 070 BPM Atrial Rate : 070 BPM P-R Int : 126 ms QRS Dur : 092 ms QT Int : 386 ms P-R-T Axes : -22 058 058 degrees QTc Int : 416 ms Normal sinus rhythm Normal ECG When compared with ECG of 29-DEC-2020 23:40, No significant change was found Referred By: Clare Paredes Electronically Signed By:LAUREL VOGT
--- NOTE | 2022-01-03 16:49 | ED.ALCOHOL ---
HPI - Alcohol General Chief Complaint: Fall Stated Complaint: ETOH, RIB PAIN, IN CUSTODY Source: patient, EMS and police Mode of arrival: EMS Limitations: other (Intoxicated) History of Present Illness HPI narrative: 36-year-old male presents via EMS with police escort for alcohol intoxication with left chest wall pain. Patient drank 30 nips today, and he took reportedly 22 Klonopin over the past 3 days because he was trying to prevent alcohol withdrawal. He stated that he tripped over his cat and fell onto his left side and has left-sided chest wall pain. He does have detox planned in 3 days from now. MD complaint: alcohol intoxication and desires rehab Last drink: Hours (ago) (Within the hour of arrival) Amount of alcohol consumed: 30 nips Chronic alcohol use: Yes Previous visits for alcohol intoxication: Yes Recent trauma: Yes Associated symptoms: denies other symptoms Treatments prior to arrival: none Related Data Home Medications Medication Instructions Recorded Confirmed atenolol 100 mg tablet 1 tab PO DAILY 07/06/21 07/06/21 atorvastatin 40 mg tablet 1 tab PO DAILY 07/06/21 07/06/21 clonidine HCl 0.1 mg tablet 1 tab PO BID PRN anxiety 07/06/21 07/06/21 lisinopril 40 mg tablet 1 tab PO DAILY 07/06/21 07/06/21 methocarbamol 750 mg tablet 1 tab PO BEDTIME 07/06/21 07/06/21 sertraline 100 mg tablet 1 tab PO DAILY 07/06/21 07/06/21 Previous Rx's Medication Instructions Recorded hydroxyzine HCl 25 mg tablet 25 mg PO TID PRN anxiety #21 tabs 12/29/20 Allergies Allergy/AdvReac Type Severity Reaction Status Date / Time No Known Allergies Allergy Unverified 12/25/19 16:45 Review of Systems Review of Systems: Constitutional: No Fever, No Chills ENT/Mouth: No Ear Pain, No Hoarseness, No sore throat Eyes: No Eye Pain, No Swelling, No Redness, No Foreign Body Cardiovascular: Positive Chest wall Pain, No SOB Respiratory: No Cough, No Dyspnea Gastrointestinal: No Nausea, No Vomiting, No Diarrhea, No abdominal Pain Genitourinary: No Dysuria, No Hematuria Musculoskeletal: positive joint pain, No Myalgias, No Joint Swelling Skin: No Skin lacerations, No rash Neuro: No Weakness, No Numbness, No Paresthesias, No Loss of Consciousness, No Dizziness, No Headache Psych: Positive alcohol use, No Anxiety/Panic, No Depression Heme/Lymph: no easy bruising, no Lymphadenopathy Endocrine: No Polyuria, No Polydipsia Yes all other systems are reviewed and are negative [facility] Past Medical History Attestation statement: The following information was validated with the patient. Source: old records reviewed Medical History Alcohol abuse Social History Social History Alcohol intake: current Alcohol intake frequency: 3 or more drinks per day Alcohol type: hard liquor Patient Tobacco Use Status: Current everyday Tobacco user Use of substances other than those prescribed or required for medical reasons: No Advance Directives: No Advance Directives Information Provided: Yes Physical Exam ED Vital Signs: Vital Signs - 24 hr 01/03/22 17:00 Temperature 98.5 F Pulse Rate 80 Respiratory Rate 20 Blood Pressure 119/85 Pulse Oximetry 97 Oxygen Delivery Method Room Air BMI result Body Mass Index 25.4 Appearance: Alert. Oriented X3. Visibly intoxicated. Eyes: Pupils equal, round and reactive to light. Sclera nonicteric. ENT: Pharynx normal. Neck: Normal inspection. Neck supple. CVS: Left-sided chest wall tenderness to palpation. Normal heart rate and rhythm. Pulses normal. Respiratory: No respiratory distress. Breath sounds normal. Abdomen: Soft and nontender. Skin: Skin warm and dry. Normal skin color. Normal skin turgor. Extremities: No lower extremity edema. Moves all extremities against resistance. Gait not assessed for safety. Neuro: No motor deficit. No sensory deficit. Cranial nerves 2-12 intact. No asterixis Course Course Course Narrative: 36-year-old male presents via EMS with police escort for alcohol intoxication. Patient states that he has been trying to manage alcohol withdrawal symptoms at home using benzo diazepam, Klonopin, that he purchased off the street. He states that he does not feel that these Klonopin are real because the pills that he took did not help him. He has been drinking alcohol, reports 30 nips this morning. He does have detox placement in 3 days from now, and cannot present to this facility sooner because of insurance. Will order x-rays, labs and tox screen. X-rays indicate rib fractures. At this time I do not feel comfortable prescribing pain medications as he will be going home and drinking alcohol. Patient does understand that he needs to present to detox. I did have graduation coach discussed plan with him, and patient cannot present to detox tonight because of insurance. Patient's mother is at bedside, and would like this patient to be discharged and to home at this moment. Patient is agreeable, is alert oriented, well-balanced gait. MDM - Alcohol Differential Diagnosis Differential diagnosis: Likely alcohol dependence, alcohol withdrawal delirium, alcohol intoxication and alcohol ketoacidosis Medical Records Attestation: I reviewed the patient's medical records. Lab Data Attestation: I reviewed the patient's lab results. Result diagrams: 01/03/22 17:38 01/03/22 17:38 Labs: Lab Results 01/03/22 01/03/22 01/03/22 Range/Units 17:38 17:38 17:38 WBC 6.8 (4.8-10.8) X10*3/uL RBC 4.53 L (4.60-5.80) X10*6/uL Hgb 12.0 L (14.0-18.0) g/dl Hct 36.4 L (42.0-52.0) % MCV 80.4 (80.0-98.0) fL MCH 26.5 L (27.0-33.0) pg MCHC 33.0 (31.0-36.0) g/dl RDW 17.4 H (11.0-16.0) % Plt Count 267 D (160-400) X10*3/uL MPV 9.1 L (9.4-12.4) fL Immature Gran % (Auto) 0.3 (0.0-0.4) % Neut % (Auto) 49.5 (45-73) % Lymph % (Auto) 42.9 H (20-40) % [place] % (Auto) 5.1 (2-11) % Eos % (Auto) 1.2 (0-4) % Baso % (Auto) 1.0 (0-2) % Lymph # (Auto) 2.9 (1.2-4.9) X10*3/uL [place] # (Auto) 0.4 (0.1-1.2) X10*3/uL Eos # (Auto) 0.1 (0.0-0.4) X10*3/uL Baso # (Auto) 0.1 (0.0-0.2) X10*3/uL Abs Immat Gran (auto) 0.02 (0.00-0.03) X10*3/uL Absolute Neuts (auto) 3.4 (2.0-8.3) x10*3/uL Absolute Nucleated RBC 0.000 (0.0-0.012) X10*3/uL Nucleated RBC % (auto) 0.0 (0.0-0.2) /100WBC Sodium 142 (135-145) mmol/L Potassium 4.1 (3.3-5.1) mmol/L Chloride 102 (96-108) mmol/L Carbon Dioxide 20 L (22-29) mmol/L Anion Gap 24 H (12-20) BUN 11 (9-16) mg/dL Creatinine 0.66 (0.5-1.4) mg/dL Estim Creat Clear Calc 153.2 Estimated GFR > 60 Random Glucose 94 (60-115) mg/dL Calcium 9.2 D (8.4-10.2) mg/dL Phosphorus 4.3 (2.7-4.5) mg/dL Magnesium 1.8 (1.6-2.6) mg/dL Total Bilirubin 0.2 (0.0-1.0) mg/dL AST 30 D (5-37) U/L ALT 37 (0-40) U/L Alkaline Phosphatase 102 D (39-117) U/L Troponin I High Sens < 3.5 (<3.5-35.0) ng/L Total Protein 7.6 (6.5-8.0) g/dL Albumin 4.7 (3.5-5.0) g/dL Lipase 39 (8-78) U/L Salicylates (15-30) mg/dL Urine Opiates Screen (Not Detect) Urine Fentanyl Screen (Not Detect) Acetaminophen (<30) mcg/mL Ur Barbiturates Screen (Not Detect) Ur Phencyclidine Scrn (Not Detect) Ur Amphetamines Screen (Not Detect) U Benzodiazepines Scrn (Not Detect) Urine Cocaine Screen (Not Detect) U Marijuana (THC) Screen (Not Detect) Ethyl Alcohol 304 H* mg/dL Acetone, Qual Cancelled 01/03/22 01/03/22 Range/Units 17:38 17:38 WBC (4.8-10.8) X10*3/uL RBC (4.60-5.80) X10*6/uL Hgb (14.0-18.0) g/dl Hct (42.0-52.0) % MCV (80.0-98.0) fL MCH (27.0-33.0) pg MCHC (31.0-36.0) g/dl RDW (11.0-16.0) % Plt Count (160-400) X10*3/uL MPV (9.4-12.4) fL Immature Gran % (Auto) (0.0-0.4) % Neut % (Auto) (45-73) % Lymph % (Auto) (20-40) % [place] % (Auto) (2-11) % Eos % (Auto) (0-4) % Baso % (Auto) (0-2) % Lymph # (Auto) (1.2-4.9) X10*3/uL [place] # (Auto) (0.1-1.2) X10*3/uL Eos # (Auto) (0.0-0.4) X10*3/uL Baso # (Auto) (0.0-0.2) X10*3/uL Abs Immat Gran (auto) (0.00-0.03) X10*3/uL Absolute Neuts (auto) (2.0-8.3) x10*3/uL Absolute Nucleated RBC (0.0-0.012) X10*3/uL Nucleated RBC % (auto) (0.0-0.2) /100WBC Sodium (135-145) mmol/L Potassium (3.3-5.1) mmol/L Chloride (96-108) mmol/L Carbon Dioxide (22-29) mmol/L Anion Gap (12-20) BUN (9-16) mg/dL Creatinine (0.5-1.4) mg/dL Estim Creat Clear Calc Estimated GFR Random Glucose (60-115) mg/dL Calcium (8.4-10.2) mg/dL Phosphorus (2.7-4.5) mg/dL Magnesium (1.6-2.6) mg/dL Total Bilirubin (0.0-1.0) mg/dL AST (5-37) U/L ALT (0-40) U/L Alkaline Phosphatase (39-117) U/L Troponin I High Sens (<3.5-35.0) ng/L Total Protein (6.5-8.0) g/dL Albumin (3.5-5.0) g/dL Lipase (8-78) U/L Salicylates < 5.0 L (15-30) mg/dL Urine Opiates Screen Not Detected (Not Detect) Urine Fentanyl Screen Not Detected (Not Detect) Acetaminophen < 1 (<30) mcg/mL Ur Barbiturates Screen Not Detected (Not Detect) Ur Phencyclidine Scrn Not Detected (Not Detect) Ur Amphetamines Screen Not Detected (Not Detect) U Benzodiazepines Scrn Not Detected (Not Detect) Urine Cocaine Screen Not Detected (Not Detect) U Marijuana (THC) Screen Not Detected (Not Detect) Ethyl Alcohol mg/dL Acetone, Qual Negative Imaging Data Chest x-ray: Attestation: I personally reviewed and interpreted this imaging study as follows: Radiologist's impression: TECHNIQUE: Frontal view of chest. 3 views of the left ribs were obtained. A BB was placed at the lower left ribs. FINDINGS: Lungs are clear. No consolidation, pneumothorax, or pleural effusion. The cardiomediastinal silhouette and pulmonary vasculature are normal. There is a minimally displaced fracture of the anterior lateral left ninth rib and possible fracture nondisplaced of the eighth left lateral rib XR/XR ribs LT min 3V w CXR1V IMPRESSION: Fracture of the lateral left ninth rib. Possible nondisplaced fracture of the left eighth rib as well. ECG Data ECG #1: Attestation: I personally reviewed and interpreted this ECG as follows: ECG interpretation date: 01/03/22 ECG interpretation time: 18:31 Prior ECG tracings: available for review Interpretation: Vent. rate 70 BPM CA interval 126 ms QRS duration 92 ms QT/QTc 386/416 ms P-R-T axes -22 58 58 Normal sinus rhythm Normal ECG When compared with ECG of 29-DEC-2020 23:40, No significant change was found Discharge Plan Discharge Clinical Impression: Alcohol abuse Patient Disposition: Home, Self-Care Instructions: Abuse of Alcohol (ED) Additional Instructions: Please follow-up detox. Thank you for choosing this emergency department for evaluation. Please follow-up with primary care physician as needed. Return to the emergency department for any new, concerning, or worsening symptoms. Prescriptions: No Action hydroxyzine HCl 25 mg tablet 25 mg PO TID PRN (Reason: anxiety) Qty: 21 0RF atorvastatin 40 mg tablet 1 tab PO DAILY clonidine HCl 0.1 mg tablet 1 tab PO BID PRN (Reason: anxiety) atenolol 100 mg tablet 1 tab PO DAILY sertraline 100 mg tablet 1 tab PO DAILY methocarbamol 750 mg tablet 1 tab PO BEDTIME lisinopril 40 mg tablet 1 tab PO DAILY Interventions: ED Discharge Assessment Last Done: 01/03/22 19:46 Discharge Date/Time: 01/03/22 19:47
[2022-01-03 17:00] VITALS: BP 119/85; BP 152/96; PULSE 80; RESP 20; TEMP 36.9; O2SAT 97; BMI 25.4
[2022-01-03 17:45] LABS: Basophils Absolute Auto 0.1 X10*3/uL (0.0-0.2); Eosinophils Absolute Auto 0.1 X10*3/uL (0.0-0.4); Eosinophils Percent Auto 1.2 % (0-4); Hematocrit 36.4 % (42.0-52.0); Imm Gran Abs Auto 0.02 X10*3/uL (0.00-0.03); Imm Gran Pct Auto 0.3 % (0.0-0.4); Lymphocytes Absolute Auto 2.9 X10*3/uL (1.2-4.9); Lymphocytes Percent Auto 42.9 % (20-40); MANUAL DIFF FLAG NO; Mean Corpuscular Hemoglobin 26.5 pg (27.0-33.0); Mean Corpuscular Volume 80.4 fL (80.0-98.0); Mean Platelet Volume 9.1 fL (9.4-12.4); Monocytes Absolute Auto 0.4 X10*3/uL (0.1-1.2); Monocytes Percent Auto 5.1 % (2-11); Neutrophils Absolute Auto 3.4 x10*3/uL (2.0-8.3); Neutrophils Percent Auto 49.5 % (45-73); Platelet Count 267 X10*3/uL (160-400); Red Blood Count 4.53 X10*6/uL (4.60-5.80); Red Cell Distribution Width 17.4 % (11.0-16.0); White Blood Count 6.8 X10*3/uL (4.8-10.8)
[2022-01-03 18:07] LABS: Amphetamine Screen Urine Not Detected (Not Detect); Barbiturates, Urine Not Detected (Not Detect); Benzodiazepines Screen Urine Not Detected (Not Detect); Cannabinoid Screen Urine Not Detected (Not Detect); Cocaine Screen Urine Not Detected (Not Detect); Fentanyl, urine Not Detected (Not Detect); Opiate Screen Urine Not Detected (Not Detect); Phencyclidine Screen Urine Not Detected (Not Detect)
[2022-01-03 18:08] LABS: Acetaminophen LAB < 1 mcg/mL (<30); Acetone, serum QL Negative (Negative); Salicylate < 5.0 mg/dL (15-30)
[2022-01-03 18:12] LABS: Troponin-I High Sensitivity < 3.5 ng/L (<3.5-35.0)
--- NOTE | 2022-01-03 18:12 | PC.NURSE ---
This RN spoke with patient regarding SI and amount of meds taken. patient states he took about 20 pills over the course of 3-4days. states he was trying to detox of alcohol and is going to a detox in 3 days. states he is not suicidal. these statements are different from what he had told RN and SLAT GRADER earlier. SLAT GRADER made aware.
[2022-01-03 18:15] LABS: Alanine Aminotransferase 37 U/L (0-40); Albumin Level 4.7 g/dL (3.5-5.0); Alkaline Phosphatase 102 U/L (39-117); Anion Gap 24 (12-20); Aspartate Amino Transferase 30 U/L (5-37); Bilirubin Total 0.2 mg/dL (0.0-1.0); Blood Urea Nitrogen 11 mg/dL (9-16); Calcium 9.2 mg/dL (8.4-10.2); Carbon Dioxide 20 mmol/L (22-29); Chloride 102 mmol/L (96-108); Creatinine Clr Calc Pharmacy 153.2; Estimated Glomerular Filt Rate > 60; Ethanol 304 mg/dL; Glucose Random 94 mg/dL (60-115); Lipase 39 U/L (8-78); Magnesium 1.8 mg/dL (1.6-2.6); Phosphorus 4.3 mg/dL (2.7-4.5); Potassium 4.1 mmol/L (3.3-5.1); Sodium 142 mmol/L (135-145); Total Protein 7.6 g/dL (6.5-8.0)
--- NOTE | 2022-01-03 18:32 | MHC.RECOVSUP ---
Recovery Support note: Patient is a 36 year old Northern Irish speaking male who presented to [facility] ED due to a fall that occurred while patient was attempting to detox himself at home. Patient reports he is planning to go to [facility] however he has to wait 72 hours for his insurance plan to change. This fiction writer offered to get patient into a different ATS facility that works with his current insurance and patient declined, stating he only wants to go to this location. Patient is familiar with securing an ATS facility on his own and does not require assistance. Encouraged patient to inform staff if he changes his mind regarding going to a different facility. Discussed case with patient's ED provider.
--- NOTE | 2022-01-03 18:39 | PC.NURSE ---
pt reported taking 30 nips and 22 clonazepam. called poison control per provider request. at 1755 poison control recommended to closely monitor pt O2 and airway. monitor for RN CARE TRANSITION and or respiratory depression. closely monitor mental status and VS.instructed to call back when toxicology has resulted. Spoke with Mary Beth at poison control. Provider notified of recommendations.
--- NOTE | 2022-01-03 18:49 | PC.NURSE ---
called poison control back to update on labs and toxicology. poison control recommendations remain the same. poison control stated they will call back to check on his current mental status.
--- NOTE | 2022-01-03 19:43 | PC.NURSE ---
Pt. refused vital signs prior to discharge
== END 2022-01-03 19:47 | disposition home or self-care (01) ==
PROVIDERS: Nurse Practitioner Family; Emergency Provider Emergency Medicine
DX: F10.129 Alcohol abuse with intoxication, unspecified (principal); Y90.8 Blood alcohol level of 240 mg/100 ml or more; R07.81 Pleurodynia; F17.200 Nicotine dependence, unspecified, uncomplicated; Z79.899 Other long term (current) drug therapy; Z71.41 Alcohol abuse counseling and surveillance of alcoholic; Z71.6 Tobacco abuse counseling
CPT/HCPCS: 36415; 71101; 80053; 80143; 80179; 80307; 82009; 82077; 83690; 83735; 84100; 84484; 85025; 93005; 99284

== ENCOUNTER 2022-08-28 11:09 | Emergency (ER) | payer OTHER, SELFPAY ==
--- NOTE | ~2022-08-28 | CT_ITS ---
EXAMINATION: Head and cervical spine CT without IV contrast CLINICAL INFORMATION: Trauma. COMPARISON: Previous head and cervical spine CT April 2021 TECHNIQUE: Axial images through the head and cervical spine without IV contrast. Sagittal and coronal reconstructions on the technologist workstation were performed. This CT examination was performed using dose optimization techniques as appropriate, variously including the following: *Automated exposure control *Adjustment of mA and/or kV according to patient size (this includes techniques or standardized protocols for targeted exams where dose is matched to indication/reason for exam; i.e. extremities or head) *Use of iterative reconstruction technique DLP 738+5 1 5 mg/cm FINDINGS: Head CT: There is no evidence of an extra-axial collection. There is no evidence of intra or extra-axial hemorrhage. The ventricles and extra-axial CSF spaces are appropriate. Limon-white matter differentiation is normal. No mass, mass effect or infarct. No skull fracture. Sinuses, mastoid air cells and middle ears are clear. Cervical spine CT: Bone alignment is normal. No fracture or dislocation. Mild degenerative spondylosis at C6-C7 and C5-C6. Disc spaces are normal. Prevertebral soft tissues are normal. Mild carotid calcification. Visualized lung apices are clear. CT/CT cervical spine wo IV con IMPRESSION: Head CT: Unremarkable exam Cervical spine CT: No fracture or dislocation. Mild degenerative changes at C5-C6 and C6-C7.
--- NOTE | ~2022-08-28 | CT_ITS ---
EXAMINATION: Head and cervical spine CT without IV contrast CLINICAL INFORMATION: Trauma. COMPARISON: Previous head and cervical spine CT April 2021 TECHNIQUE: Axial images through the head and cervical spine without IV contrast. Sagittal and coronal reconstructions on the technologist workstation were performed. This CT examination was performed using dose optimization techniques as appropriate, variously including the following: *Automated exposure control *Adjustment of mA and/or kV according to patient size (this includes techniques or standardized protocols for targeted exams where dose is matched to indication/reason for exam; i.e. extremities or head) *Use of iterative reconstruction technique DLP 738+5 1 5 mg/cm FINDINGS: Head CT: There is no evidence of an extra-axial collection. There is no evidence of intra or extra-axial hemorrhage. The ventricles and extra-axial CSF spaces are appropriate. Limon-white matter differentiation is normal. No mass, mass effect or infarct. No skull fracture. Sinuses, mastoid air cells and middle ears are clear. Cervical spine CT: Bone alignment is normal. No fracture or dislocation. Mild degenerative spondylosis at C6-C7 and C5-C6. Disc spaces are normal. Prevertebral soft tissues are normal. Mild carotid calcification. Visualized lung apices are clear. CT/CT head/brain wo IV con IMPRESSION: Head CT: Unremarkable exam Cervical spine CT: No fracture or dislocation. Mild degenerative changes at C5-C6 and C6-C7.
--- NOTE | ~2022-08-28 | CT_ITS ---
EXAMINATION: CT chest, abdomen and pelvis with IV contrast. CLINICAL INDICATION: Trauma. COMPARISON: None. TECHNIQUE: 5 mm thin axial and reformatted 3 mm thin sagittal and coronal images of chest, abdomen and pelvis were obtained with IV contrast. DLP 237. This CT examination was performed using dose optimization technique as appropriate, variously including the following: Automated exposure control Adjustment of MA and/or KV according to patient size(this includes techniques or standardized protocols for targeted exams where dose is matched to indication/reason for exam; extremities or head. Use of iterative reconstruction techniques. FINDINGS: CHEST: LUNGS: The lungs are well-expanded and clear of acute pneumonic process there are no pulmonary nodules, masses or consolidation. Minimal atelectatic changes seen in the lingula right middle lobe and right lung base. Mediastinum: The thyroid lobes are symmetrical and normal. The central trachea and the bronchi are widely patent. Heart size and the great vessels are normal caliber. The central trachea and the bronchial airway are widely patent. There is a residual thymus soft tissue in the anterior mediastinum. Trace coronary artery calcification seen. Pleura: There is a small right pleural effusion. No calcified pleural plaques, pneumothorax or left pleural effusion seen. Axilla: Unremarkable. Osseous structures: There is a displaced right lateral sixth seventh rib fractures ABDOMEN AND PELVIS: Liver, ducts and gallbladder: The liver is diffusely attenuated, normal size and contour. No focal lesion or intrahepatic ductal dilatation seen. The gallbladder is unremarkable. CBD is normal caliber. Spleen: Unremarkable. A small accessory splenule is seen above the hilum. Pancreas: Unremarkable. Adrenal glands: Unremarkable. Kidneys and ureters: Both kidney nephrograms are symmetrical in size and configuration. No focal lesion or intrahepatic ductal dilatation seen. There are no radiopaque renal calculi or hydronephrosis. Lymphovascular structures: The abdominal aorta is normal caliber. No abnormal size retroperitoneal lymph nodes seen. GI tract: There is scattered stool and gas seen throughout the colon without significant distention. The small bowel loops are normal caliber. No free air or free fluid seen. Appendix is not visualized. Abdominal wall: Unremarkable. Pelvis: The bladder is well distended and appears unremarkable. The prostate gland is normal size. No free air or free fluid. No abnormal pelvic lymph nodes or hernia. Osseous structures: No aggressive lytic or sclerotic process seen. CT/CT abdomen pelvis w IV con IMPRESSION: Small right pleural effusion.. Displaced right lateral sixth and seventh rib fractures. Mild atelectatic changes lingula, right middle lobe and right lower lobe. No consolidation. Residual thymus in the anterior mediastinum. No acute process seen in the abdomen.
[2022-08-28 11:13] VITALS: BP 164/111; PULSE 115; RESP 22; TEMP 36.9; O2SAT 96; BMI 33.3
--- NOTE | 2022-08-28 11:14 | ED_ITS ---
HPI - Fall General Chief Complaint: Fall Stated Complaint: fell off roof Time Seen by Provider: 08/28/22 11:38 Source: patient Mode of arrival: ambulatory Limitations: no limitations History of Present Illness HPI Narrative: 36-year-old male with history of alcohol abuse presents after falling off the roof fall trying to get a bird's nest off the roof. Patient had been drinking today. He denies hitting his head or loss consciousness. Predominant has right-sided chest pain where he struck. It is associated with shortness of breath. The pain is severe. The pain does not radiate. Pain is worse with respiration and movement. Related Data Home Medications Medication Instructions Recorded Confirmed atenolol 100 mg tablet 1 tab PO DAILY 07/06/21 07/06/21 atorvastatin 40 mg tablet 1 tab PO DAILY 07/06/21 07/06/21 clonidine HCl 0.1 mg tablet 1 tab PO BID PRN anxiety 07/06/21 07/06/21 lisinopril 40 mg tablet 1 tab PO DAILY 07/06/21 07/06/21 methocarbamol 750 mg tablet 1 tab PO BEDTIME 07/06/21 07/06/21 sertraline 100 mg tablet 1 tab PO DAILY 07/06/21 07/06/21 Previous Rx's Medication Instructions Recorded hydroxyzine HCl 25 mg tablet 25 mg PO TID PRN anxiety #21 tabs 12/29/20 meloxicam 15 mg tablet 15 mg PO DAILY #20 tabs 08/28/22 Allergies Allergy/AdvReac Type Severity Reaction Status Date / Time No Known Allergies Allergy Unverified 12/25/19 16:45 [facility] Past Medical History Medical History Alcohol abuse Social History Social History Alcohol intake: current Alcohol intake frequency: 3 or more drinks per day A lcohol type: hard liquor Patient Tobacco Use Status: Current everyday Tobacco user Advance Directives: No Advance Directives Information Provided: No Physical Exam Vital Signs: Vital Signs: Last Vital Signs Temp 98.4 F 08/28/22 11:13 Pulse 115 H 08/28/22 11:13 Resp 22 H 08/28/22 11:13 BP 164/111 H 08/28/22 11:13 Pulse Ox 96 08/28/22 11:13 O2 Del Method Room Air 05/22/23 11:13 BMI result Body Mass Index 33.3 GEN: Well developed, mild acute distress, alert, oriented HEENT: Normocephalic, atraumatic, normal external ears, nose appears normal, no oropharyngeal edema or exudates Eyes: Normal to appearance Neck: Supple, no lymphadenopathy Respiratory: Talks in complete sentences, decreased breath sounds over the right lung field Chest: Right-sided chest wall tenderness to palpation Cardiovascular: Regular rate and rhythm, no murmurs rubs or gallops Abdomen: Soft, nontender, nondistended, no guarding, no rebound Back: No CVA tenderness Extremities: No clubbing cyanosis or edema Neurologic: No focal neurologic deficits, cranial nerves 2-12 intact, strength is 5/5 bilaterally Skin: No rash Course Course Course Narrative: This is a rapid medical exam. Deferred additional HPI, ROS, PE to primary provider. 36 yo male with history of HTN, HLD here with fall of one story roof 4 hours ago landing on right side. Patient denies hitting his head or loss of consciousness. +etoh on breath. Patient reports he last drink last evening. Patient tenderness on exam over the right ribs and chest wall with manolo umbilical bruising noted. Patient tachycardic and hypertensive. Called and spoke to charge nurse (Yvonne) who is aware patient needs to brought to room [facility]. Labs, CT ordered Reevaluation(s) Reevaluation #1: Patient received 1 mg of Dilaudid. Alcohol level significantly elevated. He will receive another half a mg of Dilaudid. However, patient has been informed that we cannot give additional analgesia until after his imaging studies given the concern for respiratory depression from alcohol and narcotics. Time: 12:57 Reevaluation #2: Patient continued to complain of severe pain. Will try fentanyl. Time: 15:00 Reevaluation #3: Discussed results with patient and mother. There are 2 rib fractures. I discussed the inability did prescribe opioid analgesics given the acute alcohol intoxication and concern for mixing alcohol with narcotic medications. Patient was obviously upset about this however I did discuss at length the safety related issues. Time: 15:54 Medications Administered Generic Name Dose Route Start Last Admin Trade Name Freq PRN Reason Stop Dose Admin Fentanyl 50 mcg 08/28/22 15:00 08/28/22 15:08 Fentanyl Citrate/Pf 100 Mcg/2 Ml Vial IVPUSH 50 mcg Q2H PRN Administration Pain, Severe (Pain Scale 7-10) Protocol Discontinued Medications Generic Name Dose Route Start Last Admin Trade Name [place] PRN Reason Stop Dose Admin Hydromorphone HCl 1 mg 08/28/22 12:09 08/28/22 12:21 Hydromorphone Hcl 1 Mg/Ml Syringe IVPUSH 08/28/22 12:10 1 mg ONCE ONE Administration Protocol Hydromorphone HCl 0.5 mg 08/28/22 12:55 08/28/22 13:01 Hydromorphone Hcl 0.5 Mg/0.5 Ml Syringe IVPUSH 08/28/22 12:56 0.5 mg ONCE ONE Administration Protocol Iohexol 100 ml 08/28/22 13:22 08/28/22 13:24 Iohexol 350 Mg/Ml 100 Ml Infus..Btl IV 08/28/22 13:23 100 ml ONCE ONE Administration Ondansetron HCl 4 mg 08/28/22 12:17 08/28/22 12:27 Ondansetron Hcl 4 Mg/2 Ml Vial IVPUSH 08/28/22 12:18 4 mg ONCE ONE Administration Medical Decision Making Medical Decision Making [facility] Narrative: Patient presents with a fall from roof. He has alcohol on board. He denies head trauma. However, reliability given acute alcohol intoxication is conc erning. Will CT scan head, neck, chest, abdomen and pelvis. Patient is unable to lie flat due to pain. I will provide him with some analgesia but there is concern for respiratory depression. Will check routine laboratory testing. Will provide patient with IV fluids. Differential Diagnosis Differential Diagnoses: The differential diagnosis associated with the presentation includes (Acute head injury, pneumothorax, flail chest, rib fracture, pulmonary contusion, internal abdominal injury) Admission/Observation Consideration of admission/observation: Escalation of care including ad mission/observation considered Lab Data [facility] Lab Attestation statement: I reviewed the patient's lab results. 08/28/22 11:30 08/28/22 11:30 Labs: Lab Results 08/28/22 08/28/22 08/28/22 Range/Units 11:30 11:30 11:30 WBC 5.5 (4.8-10.8) X10*3/uL RBC 4.41 L (4.60-5.80) X10*6/uL Hgb 12.4 L (14.0-18.0) g/dl Hct 36.4 L (42.0-52.0) % MCV 82.5 (80.0-98.0) fL MCH 28.1 (27.0-33.0) pg MCHC 34.1 (31.0-36.0) g/dl RDW 18.9 H (11.0-16.0) % Plt Count 199 D (160-400) X10*3/uL MPV 9.0 L (9.4-12.4) fL Immature Gran % (Auto) 0.4 (0.0-0.4) % Neut % (Auto) 56.0 (45-73) % Lymph % (Auto) 35.8 (20-40) % [place] % (Auto) 6.9 (2-11) % Eos % (Auto) 0.2 (0-4) % Baso % (Auto) 0.7 (0-2) % Lymph # (Auto) 2.0 (1.2-4.9) X10*3/uL [place] # (Auto) 0.4 (0.1-1.2) X10*3/uL Eos # (Auto) 0.0 (0.0-0.4) X10*3/uL Baso # (Auto) 0.0 (0.0-0.2) X10*3/uL Abs Immat Gran (auto) 0.02 (0.00-0.03) X10*3/uL Absolute Neuts (auto) 3.1 (2.0-8.3) x10*3/uL Absolute Nucleated RBC 0.000 (0.0-0.012) X10*3/uL Nucleated RBC % (auto) 0.0 (0.0-0.2) /100WBC PT 11.0 (10.0-13.1) SEC INR 1.0 (0.9-1.1) Sodium 143 (135-145) mmol/L Potassium 4.2 (3.3-5.1) mmol/L Chloride 103 (96-108) mmol/L Carbon Dioxide 24 (22-29) mmol/L Anion Gap 20 (12-20) BUN 4 L (9-16) mg/dL Creatinine 0.59 (0.5-1.4) mg/dL Estim Creat Clear Calc 177.4 Estimated GFR > 60 Random Glucose 126 H (60-115) mg/dL Calcium 9.0 (8.4-10.2) mg/dL Total Bilirubin 0.4 (0.0-1.0) mg/dL Direct Bilirubin 0.1 (0.0-0.5) mg/dL AST 47 H (5-37) U/L ALT 49 H (0-40) U/L Alkaline Phosphatase 102 (39-117) U/L Total Protein 6.9 (6.5-8.0) g/dL Albumin 4.2 (3.5-5.0) g/dL Ethyl Alcohol mg/dL 08/28/22 Range/Units 11:30 WBC (4.8-10.8) X10*3/uL RBC (4.60-5.80) X10*6/uL Hgb (14.0-18.0) g/dl Hct (42.0-52.0) % MCV (80.0-98.0) fL MCH (27.0-33.0) pg MCHC (31.0-36.0) g/dl RDW (11.0-16.0) % Plt Count (160-400) X10*3/uL MPV (9.4-12.4) fL Immature Gran % (Auto) (0.0-0.4) % Neut % (Auto) (45-73) % Lymph % (Auto) (20-40) % [place] % (Auto) (2-11) % Eos % (Auto) (0-4) % Baso % (Auto) (0-2) % Lymph # (Auto) (1.2-4.9) X10*3/uL [place] # (Auto) (0.1-1.2) X10*3/uL Eos # (Auto) (0.0-0.4) X10*3/uL Baso # (Auto) (0.0-0.2) X10*3/uL Abs Immat Gran (auto) (0.00-0.03) X10*3/uL Absolute Neuts (auto) (2.0-8.3) x10*3/uL Absolute Nucleated RBC (0.0-0.012) X10*3/uL Nucleated RBC % (auto) (0.0-0.2) /100WBC PT (10.0-13.1) SEC INR (0.9-1.1) Sodium (135-145) mmol/L Potassium (3.3-5.1) mmol/L Chloride (96-108) mmol/L Carbon Dioxide (22-29) mmol/L Anion Gap (12-20) BUN (9-16) mg/dL Creatinine (0.5-1.4) mg/dL Estim Creat Clear Calc Estimated GFR Random Glucose (60-115) mg/dL Calcium (8.4-10.2) mg/dL Total Bilirubin (0.0-1.0) mg/dL Direct Bilirubin (0.0-0.5) mg/dL AST (5-37) U/L ALT (0-40) U/L Alkaline Phosphatase (39-117) U/L Total Protein (6.5-8.0) g/dL Albumin (3.5-5.0) g/dL Ethyl Alcohol 334 H* mg/dL Independent Interpretation I performed an independent interpretation of an: CT Scan (Head, neck no acute traumatic injury) Radiology Impression Discussion of test interpretation with radiology: I have reviewed the radiologist's reading. ( CT/CT cervical spine wo IV con IMPRE SSION: Head CT: Unremarkable exam Cervical spine CT: No fracture or dislocation. Mild degenerative changes at C5-C6 and C6-C7. Dictated By:Neris Stokes MDSigned By:<Electronically signed by Neris Stokes MD in OV>08/28/22 2517 ORDER #: [id number]) Independent Historian Clinical information obtained from an independent historian. History obtained from or confirmed by: Parent Prescription Management I considered prescription management with: Pain Medication Critical Care Time Critical Care Time Critical Care Time: Yes Total Critical Care Time: 40 Attestation: I personally spent approximately 40 minutes of critical care time exclusive of any time spent on any procedures. This was spent in the evaluation and management of a critically ill patient a condition of acute traumatic injury from falling from the roof. I provided the following critical care time in cluding direct patient care, documentation, interpretation and medical data, discussion with patient and family. Discharge Plan Discharge Clinical Impression: Alcohol intoxication, Fall from roof, Acute chest pain, Rib fractures Patient Disposition: Still a Patient Instructions: Rib Fracture (ED), Abuse of Alcohol (DC) Additional Instructions: For Pain: Meloxicam 15 mg daily Tylenol 1000 mg every 6 hours as needed for additional pain relief Capsaicin cream 3 times daily as needed Heat/Ice Prescriptions: New meloxicam 15 mg tablet 15 mg PO DAILY Qty: 20 0RF No Action hydroxyzine HCl 25 mg tablet 25 mg PO TID PRN (Reason: anxiety) Qty: 21 0RF atorvastatin 40 mg tablet 1 tab PO DAILY clonidine HCl 0.1 mg tablet 1 tab PO BID PRN (Reason: anxiety) atenolol 100 mg tablet 1 tab PO DAILY sertraline 100 mg tablet 1 tab PO DAILY methocarbamol 750 mg tablet 1 tab PO BEDTIME lisinopril 40 mg tablet 1 tab PO DAILY Referrals: Barb Lynne PA [Phys[employer]] - (possible rib nerve block) Diana Lopez MD [Primary Care Provider] - 2 days
[2022-08-28 11:35] LABS: MANUAL DIFF FLAG NO
[2022-08-28 11:37] LABS: Basophils Percent Auto 0.7 % (0-2); Eosinophils Percent Auto 0.2 % (0-4); Hematocrit 36.4 % (42.0-52.0); Hemoglobin 12.4 g/dl (14.0-18.0); Imm Gran Abs Auto 0.02 X10*3/uL (0.00-0.03); Imm Gran Pct Auto 0.4 % (0.0-0.4); Lymphocytes Percent Auto 35.8 % (20-40); Mean Corpuscular HGB Conc 34.1 g/dl (31.0-36.0); Mean Corpuscular Hemoglobin 28.1 pg (27.0-33.0); Mean Corpuscular Volume 82.5 fL (80.0-98.0); Monocytes Absolute Auto 0.4 X10*3/uL (0.1-1.2); Monocytes Percent Auto 6.9 % (2-11); Neutrophils Absolute Auto 3.1 x10*3/uL (2.0-8.3); Platelet Count 199 X10*3/uL (160-400); Red Blood Count 4.41 X10*6/uL (4.60-5.80); Red Cell Distribution Width 18.9 % (11.0-16.0); White Blood Count 5.5 X10*3/uL (4.8-10.8)
[2022-08-28 11:50] LABS: Ethanol 334 mg/dL
[2022-08-28 11:52] LABS: Alanine Aminotransferase 49 U/L (0-40); Albumin Level 4.2 g/dL (3.5-5.0); Alkaline Phosphatase 102 U/L (39-117); Anion Gap 20 (12-20); Aspartate Amino Transferase 47 U/L (5-37); Bilirubin Direct 0.1 mg/dL (0.0-0.5); Bilirubin Total 0.4 mg/dL (0.0-1.0); Blood Urea Nitrogen 4 mg/dL (9-16); Carbon Dioxide 24 mmol/L (22-29); Chloride 103 mmol/L (96-108); Creatinine Clr Calc Pharmacy 177.4; Estimated Glomerular Filt Rate > 60; Glucose Random 126 mg/dL (60-115); Potassium 4.2 mmol/L (3.3-5.1); Sodium 143 mmol/L (135-145); Total Protein 6.9 g/dL (6.5-8.0)
[2022-08-28] MEDS: HYDROmorphone HCl 1 MG/ML SYRINGE IVPUSH (12:21)
[2022-08-28] MEDS: ondansetron HCL 4 MG/2 ML VIAL IVPUSH (12:27)
[2022-08-28] MEDS: HYDROmorphone HCl 0.5 MG/0.5 ML SYRINGE IVPUSH (13:01)
--- NOTE | 2022-08-28 13:05 | PC.NURSE ---
Patient states that he is still in too much pain to lay down for CT. Provider made aware and patient medicated per JUN.
[2022-08-28] MEDS: iohexoL 350 MG/ML 100 ML INFUS..BTL IV (13:24)
[2022-08-28] MEDS: fentaNYL citrate/PF 100 MCG/2 ML VIAL 50 MCG IVPUSH (15:08)
== END 2022-08-28 16:21 | disposition still patient (30) ==
PROVIDERS: Nurse Practitioner Family; Emergency Provider Emergency Medicine; PCP Internal Medicine
DX: S22.41XA Multiple fractures of ribs, right side, initial encounter for closed fracture (principal); W13.2XXA Fall from, out of or through roof, initial encounter; F10.120 Alcohol abuse with intoxication, uncomplicated; Y90.8 Blood alcohol level of 240 mg/100 ml or more; R07.9 Chest pain, unspecified; J90 Pleural effusion, not elsewhere classified; F17.200 Nicotine dependence, unspecified, uncomplicated; Z79.02 Long term (current) use of antithrombotics/antiplatelets; Z79.899 Other long term (current) drug therapy; Y93.H9 Activity, other involving exterior property and land maintenance, building and construction; Y92.017 Garden or yard in single-family (private) house as the place of occurrence of the external cause; Y99.9 Unspecified external cause status
CPT/HCPCS: 36415; 70450; 71260; 72125; 74177; 80048; 80076; 80307; 85025; 85610; 96374; 96375; 96376; 99282; 99284; J1170; J2405; J3010; Q9967

== ENCOUNTER 2023-05-11 10:52 | Emergency (ER) | payer OTHER, SELFPAY ==
[2023-05-11 11:18] VITALS: BP 127/79; PULSE 78; RESP 18; TEMP 37; O2SAT 96; BMI 26.6
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
[2023-05-11] MEDS: Diphth,Pertus(ACell),Tet Adult 0.5 ML SYRINGE IM (11:25)
== END 2023-05-11 11:35 | disposition home or self-care (01) ==
LOC: HO.ED 11:30
PROVIDERS: Emergency Provider Emergency Medicine Emergency Medical Services
DX: S00.81XA Abrasion of other part of head, initial encounter (principal); W26.9XXA Contact with unspecified sharp object(s), initial encounter; Y93.9 Activity, unspecified; Y92.9 Unspecified place or not applicable; Y99.8 Other external cause status; Z23 Encounter for immunization
CPT/HCPCS: 90471; 90715; 99282; 99284

== ENCOUNTER 2023-11-05 18:59 | Inpatient (IN) | payer OTHER, SELFPAY ==
--- NOTE | ~2023-11-05 | CT_ITS ---
EXAMINATION: CT ABDOMEN AND PELVIS WITHOUT CONTRAST CLINICAL INFORMATION: hematemesis, alcohol use, abd pain. COMPARISON: 08/28/2022. TECHNIQUE: Multidetector volumetric imaging was performed from the superior aspect of the liver through the pubic symphysis without contrast per renal stone protocol. Sagittal and coronal reformatted images were obtained on the technologist workstation. This CT examination was performed using dose optimization techniques as appropriate, variously including the following: *Automated exposure control *Adjustment of mA and/or kV according to patient size (this includes techniques or standardized protocols for targeted exams where dose is matched to indication/reason for exam; i.e. extremities or head) *Use of iterative reconstruction technique DLP: 633 mGy-cm. FINDINGS: LUNG BASES: The visualized lung bases are unremarkable. LIVER, GALLBLADDER, BILIARY TREE: Diffuse fatty infiltration of the liver but no focal hepatic lesion nor biliary ductal dilatation appreciated The gallbladder is unremarkable with no evidence of radiopaque gallstones, gallbladder wall thickening, or obvious pericholecystic inflammatory changes. PANCREAS: Unremarkable. SPLEEN: Unremarkable. ADRENAL GLANDS: Unremarkable. KIDNEYS AND URETERS: The kidneys are normal in size, shape, and attenuation. No hydronephrosis, hydroureter, or perinephric stranding. No calculi. BLADDER: Unremarkable. GASTROINTESTINAL TRACT: A few small scattered colonic diverticula are seen but no colonic wall thickening or pericolonic inflammatory change to suggest diverticulitis. Normal-appearing appendix in the right lower quadrant. Visualized small bowel unremarkable. Small hiatal hernia suggested but the stomach is decompressed and otherwise not well assessed ABDOMINAL WALL: No significant hernia is appreciated. LYMPHOVASCULAR STRUCTURES: Mild vascular calcification within the aorta iliac system. No bulky adenopathy. PELVIC VISCERA: Unremarkable. OSSEUS STRUCTURES: Unremarkable. CT/CT abdomen pelvis wo IV con IMPRESSION: No acute intra-abdominal process seen. Diffuse fatty infiltration of the liver.
[2023-11-05 19:07] VITALS: BP 150/88; PULSE 140
[2023-11-05 19:22] VITALS: BP 140/91; PULSE 120; RESP 19; TEMP 37.1; O2SAT 98; BMI 28.1
--- NOTE | 2023-11-05 19:22 | ECG_ITS ---
Test Reason : etoh Blood Pressure : / mmHG Vent. Rate : 111 BPM Atrial Rate : 111 BPM P-R Int : 146 ms QRS Dur : 080 ms QT Int : 336 ms P-R-T Axes : 058 053 051 degrees QTc Int : 456 ms Sinus tachycardia Otherwise normal ECG When compared with ECG of 03-JAN-2022 18:31, Vent. rate has increased BY 41 BPM Referred By: Melissa Eckert Electronically Signed By:Timo Murillo
[2023-11-05 19:37] LABS: MANUAL DIFF FLAG NO
[2023-11-05 19:42] LABS: Basophils Percent Auto 0.3 % (0-2); Eosinophils Percent Auto 0.1 % (0-4); Hematocrit 43.8 % (42.0-52.0); Hemoglobin 15.5 g/dl (14.0-18.0); Imm Gran Abs Auto 0.03 X10*3/uL (0.00-0.03); Imm Gran Pct Auto 0.4 % (0.0-0.4); Lymphocytes Absolute Auto 2.2 X10*3/uL (1.2-4.9); Lymphocytes Percent Auto 29.3 % (20-40); Mean Corpuscular HGB Conc 35.4 g/dl (31.0-36.0); Mean Corpuscular Hemoglobin 29.1 pg (27.0-33.0); Mean Corpuscular Volume 82.2 fL (80.0-98.0); Mean Platelet Volume 8.9 fL (9.4-12.4); Monocytes Absolute Auto 0.4 X10*3/uL (0.1-1.2); Monocytes Percent Auto 5.8 % (2-11); Neutrophils Absolute Auto 4.9 x10*3/uL (2.0-8.3); Neutrophils Percent Auto 64.1 % (45-73); Platelet Count 422 X10*3/uL (160-400); Red Blood Count 5.33 X10*6/uL (4.60-5.80); Red Cell Distribution Width 13.1 % (11.0-16.0); White Blood Count 7.7 X10*3/uL (4.8-10.8)
[2023-11-05] MEDS: ondansetron HCL 4 MG/2 ML VIAL IVPUSH (19:45)
[2023-11-05] MEDS: LORazepam 2 MG/ML VIAL IVPUSH (19:46)
[2023-11-05] MEDS: 0.9 % Sodium Chloride 1,000 ML 999 ML IV (19:49)
[2023-11-05] MEDS: Thiamine HCL 200 MG in 0.9 % Sodium Chloride 100 ML 204 MG IV (19:50)
[2023-11-05 19:52] LABS: Prothrombin Time 12.1 SEC (11.1-13.3)
--- NOTE | 2023-11-05 19:58 | ED_ITS ---
HPI - Alcohol General Chief Complaint: ETOH/Substance Use Stated Complaint: ETOH Time Seen by Provider: 11/05/23 19:03 Source: patient Mode of arrival: EMS Limitations: other (intoxicated) History of Present Illness ED Provider: PHILIP DALY narrative: 38 yo male with ETOH abuse, HTN, denies prior withdrawal seizures - someone from home called due to excessive binge drinking and patient has been vomiting - EMS notes coffee ground emesis. On arrival patient states he is not staying but is aware he is too drunk to leave. He agrees to some IV therapy but states once he is more sober he is leaving. He denies n/v to us and states he threw up food. His family is very concerned MD complaint: alcohol intoxication Last drink: Just prior to admission Chronic alcohol use: Yes Previous visits for alcohol intoxication: Yes Recent trauma: No Associated symptoms: nausea and vomiting Treatments prior to arrival: none Related Data Home Medications ?Medication ?Instructions ?Recorded ?Confirmed atenolol 100 mg tablet 1 tab PO DAILY 07/06/21 11/05/23 atorvastatin 40 mg tablet 1 tab PO DAILY 07/06/21 11/05/23 clonidine HCl 0.1 mg tablet 1 tab PO BID PRN anxiety 07/06/21 11/05/23 lisinopril 40 mg tablet 1 tab PO DAILY 07/06/21 11/05/23 methocarbamol 750 mg tablet 1 tab PO BEDTIME PRN restlessness 07/06/21 11/05/23 sertraline 100 mg tablet 1 tab PO DAILY 07/06/21 11/05/23 bupropion HCl 200 mg tablet,12 hr 200 mg PO DAILY 11/05/23 11/05/23 sustained-release omeprazole 20 mg capsule,delayed 20 mg PO DAILY 11/05/23 11/05/23 release Previous Rx's ?Medication ?Instructions ?Recorded hydroxyzine HCl 25 mg tablet 25 mg PO TID PRN anxiety #21 tabs 12/29/20 Allergies Allergy/AdvReac Type Severity Reaction Status Date / Time No Known Allergies Allergy Verified 11/05/23 19:23 Review of Systems 2 Review of Systems: Constitutional : No Fever, No Chills, No Fatigue ENT/Mouth : No sore throat, No Rhinorrhea Eyes: No Eye Pain, No Swelling, No Redness Cardiovascular : No Chest Pain, No SOB, No Dyspnea on Exertion Respiratory : No Cough, No Sputum Gastrointestinal : pos Nausea, pos Vomiting, No Diarrhea, No abdominal Pain Genitourinary : No Dysuria, No Urinary Frequency, No Hematuria, Musculoskeletal : No joint pain, No Myalgias, No Joint Swelling Skin : No Skin Lesions, No rash Neuro : No Weakness, No Numbness, No Dizziness, no Headache Psych : No Anxiety/Panic, No Depression All other systems reviewed and are negative [facility] Past Medical History Attestation statement: The following information was validated with the patient. Source: old records reviewed Medical History Hypertension Mood disorder Alcohol abuse Social History Social History Household Members: Family Housing: Apartment Do you presently have visiting nurse or other home services: No Alcohol intake: current Alcohol intake frequency: 3 or more drinks per day Alcohol type: hard liquor Patient Tobacco Use Status: Current everyday Tobacco user Tobacco use type: Cigarette Smoked in Last 30 Days: Yes e-Cigarette/Vaping Use: Never Used Patient Interested in Nicotine Replacement: No Patient Given Instructions on How to Stop Smoking: Yes Date Education Initiated: 11/05/23 Second Hand Smoke Exposure: Yes Use of substances other than those prescribed or required for medical reasons: No Substance Use Type: Caffiene Substance Use Type Other:: pt denies Currently Displaying Signs/Symptoms of Drug Intoxication Withdrawal: Yes Any prior treatment program specific to substance use: No Have you been hit, kicked, punched, or otherwise hurt by someone within the past year? If so, by whom?: No Do you feel safe in your current relationship?: Yes Is there a partner from a previous relationship who is making you feel unsafe now?: No Are you made to feel afraid or neglected: No Spiritual Healthcare Practices: none per pt Confucianism Healthcare Practices: none per pt Cultural Healthcare Practices: none per pt Advance Directives: No Advance Directives Information Provided: No Advance Directives on File: No Do you have a plan to hurt others: No Plan Recently lost weight without trying: No Eating poorly because of decreased appetite: No Nutrition Risks: No Nutritional Risk Poor oral hygiene: No Physical Exam ED Vital Signs: Vital Signs - 24 hr 11/05/23 19:22 11/05/23 21:23 Temperature 98.7 F Pulse Rate 120 H 110 H Respiratory Rate 19 18 Blood Pressure 140/91 H 149/84 H Pulse Oximetry 98 97 Oxygen Delivery Method Room Air Room Air BMI result Body Mass Index 28.1 Appearance: Alert. appears under the influence, ETOH odor. Oriented X3. No acute distress. Eyes: Pupils equal, round and reactive to light. ENT: dried vomit brownish around mouth. atraumatic Neck: Normal inspection. Neck supple. CVS: Normal heart rate and rhythm. Pulses normal. Respiratory: No respiratory distress. Breath sounds normal. Abdomen: Soft and nontender. Skin: Skin warm and dry. Normal skin color. Normal skin turgor. Extremities: No lower extremity edema. Neuro: Oriented X 3. No motor deficit. No sensory deficit. Course Course Course Narrative: still CIWA at 8 after 2mg IV ativan will start on phenobarb and admit father notes he has been drinking heavy for 5 days Medical Decision Making Medical Decision Making [facility] Narrative: 38 yo male with ETOH abuse, HTN, denies prior withdrawal seizures here with c/o ETOH intoxication and states he is going to leave he denies vomiting coffee ground emesis - I did get him to stay for labs and some IVF , thiamine, IV protonix for now. Will reassess and talk to him in a bit. IV ativan ordered. He states he is not staying. Will reassess that as well. No signs of head trauma. No hx of varices. He has what looks like coffee ground emesis on his mouth. I suspect he is high risk for withdrawal Differential Diagnosis Differential Diagnoses: The differential diagnosis associated with the presentation includes alcohol abuse, alcoholic gastritis, MW tear Admission/Observation Consideration of admission/observation: Escalation of care including admission/observation considered admit and phenobarb protocol started Consult Healthcare Provider Management of the patient was discussed with: Hospitalist (will admit) Lab Data [facility] Lab Attestation statement: I reviewed the patient's lab results. 11/05/23 19:31 11/05/23 19:31 Labs: Lab Results 11/05/23 11/05/23 Range/Units 19:31 19:33 WBC 7.7 (4.8-10.8) X10*3/uL RBC 5.33 D (4.60-5.80) X10*6/uL Hgb 15.5 D (14.0-18.0) g/dl Hct 43.8 D (42.0-52.0) % MCV 82.2 (80.0-98.0) fL MCH 29.1 (27.0-33.0) pg MCHC 35.4 (31.0-36.0) g/dl RDW 13.1 (11.0-16.0) % Plt Count 422 H D (160-400) X10*3/uL MPV 8.9 L (9.4-12.4) fL Immature Gran % (Auto) 0.4 (0.0-0.4) % Neut % (Auto) 64.1 (45-73) % Lymph % (Auto) 29.3 (20-40) % Piute % (Auto) 5.8 (2-11) % Eos % (Auto) 0.1 (0-4) % Baso % (Auto) 0.3 (0-2) % Lymph # (Auto) 2.2 (1.2-4.9) X10*3/uL Piute # (Auto) 0.4 (0.1-1.2) X10*3/uL Eos # (Auto) 0.0 (0.0-0.4) X10*3/uL Baso # (Auto) 0.0 (0.0-0.2) X10*3/uL Abs Immat Gran (auto) 0.03 (0.00-0.03) X10*3/uL Absolute Neuts (auto) 4.9 (2.0-8.3) x10*3/uL Absolute Nucleated RBC 0.000 (0.0-0.012) X10*3/uL Nucleated RBC % (auto) 0.0 (0.0-0.2) /100WBC PT 12.1 (11.1-13.3) SEC INR 1.0 (0.9-1.1) Sodium 133 L (135-145) mmol/L Potassium 4.3 (3.3-5.1) mmol/L Chloride 90 L (96-108) mmol/L Carbon Dioxide 16 L (22-29) mmol/L Anion Gap 31 H (12-20) BUN 11 (9-16) mg/dL Creatinine 0.80 (0.5-1.4) mg/dL Estim Creat Clear Calc 118.4 Estimated GFR > 60 Random Glucose 115 (60-115) mg/dL Calcium 9.1 (8.4-10.2) mg/dL Magnesium 2.4 (1.6-2.6) mg/dL Total Bilirubin 0.6 (0.0-1.0) mg/dL Direct Bilirubin 0.2 (0.0-0.5) mg/dL AST 56 H (5-37) U/L ALT 64 H (0-40) U/L Alkaline Phosphatase 140 H (39-117) U/L Total Protein 9.0 H (6.5-8.0) g/dL Albumin 5.3 H (3.5-5.0) g/dL Lipase 38 (8-78) U/L Urine Opiates Screen Not Detected (Not Detect) Ur Buprenorphine Scrn Not Detected (Not Detect) ng/mL Ur Oxycodone Screen Not Detected (Not Detect) ng/mL Urine Methadone Screen Not Detected (Not Detect) ng/mL Urine Fentanyl Screen Not Detected (Not Detect) Ur Barbiturates Screen Not Detected (Not Detect) Ur Phencyclidine Scrn Not Detected (Not Detect) Ur Amphetamines Screen Not Detected (Not Detect) U Benzodiazepines Scrn Not Detected (Not Detect) Urine Cocaine Screen Not Detected (Not Detect) U Marijuana (THC) Screen Not Detected (Not Detect) Ethyl Alcohol 303 H* mg/dL Independent Interpretation I performed an independent interpretation of an: EKG Interpretation: Rate: 111 Rhythm: sinus tachycardia Clemons: normal Normal P waves. Normal BARRERA. Normal QRS complex. ST T wave : normal no MARIA FERNANDA qTC: 456 prior studies: no acute ischemia The study has been interpreted contemporaneously by me. . Independent Historian Clinical information obtained from an independent historian. History obtained from or confirmed by: EMS External Record Review External record reviewed: Inpatient record Medications Administered Generic Name Dose Route Start Last Admin Trade Name Freq PRN Reason Stop Dose Admin Phenobarbital Sodium 220 mg 11/06/23 01:00 11/06/23 01:05 Phenobarbital Sodium 130 Mg/Ml Vial Im Q3hx2 IM 11/06/23 04:01 220 mg Q3H HUEY Administration Protocol Sodium Chloride 3 ml 11/06/23 00:00 11/06/23 00:11 0.9 % Sodium Chloride Flush 3 Ml Syringe IVFLUSH 3 ml QSHIFT HUEY Administration Discontinued Medications Generic Name Dose Route Start Last Admin Trade Name Freq PRN Reason Stop Dose Admin Sodium Chloride 1,000 mls @ 999 mls/hr 11/05/23 19:22 11/05/23 21:21 Ns IV 11/05/23 20:22 Infused .Q1H1M ONE Infusion Magnesium Sulfate 2 gm in 50 mls @ 25 mls/hr 11/05/23 19:22 11/05/23 22:33 Magnesium Sulfate/H2o IV 11/05/23 21:21 Infused ONCE ONE Infusion Thiamine HCl 200 mg/ Sodium 102 mls @ 204 mls/hr 11/05/23 19:23 11/05/23 20:31 Chloride IV 11/05/23 19:52 Infused ONCE ONE Infusion Lorazepam 2 mg 11/05/23 19:22 11/05/23 19:46 Lorazepam 2 Mg/Ml Vial IVPUSH 11/05/23 19:23 2 mg ONCE ONE Administration Ondansetron HCl 4 mg 11/05/23 19:22 11/05/23 19:45 Ondansetron Hcl 4 Mg/2 Ml Vial IVPUSH 11/05/23 19:23 4 mg ONCE ONE Administration Pantoprazole Sodium 40 mg 11/05/23 20:28 11/05/23 21:21 Pantoprazole Sodium 40 Mg/10 Ml Vial IVPUSH 11/05/23 20:29 40 mg ONCE ONE Administration Phenobarbital Sodium 295 mg 11/05/23 22:00 11/05/23 21:53 Phenobarbital Sodium 130 Mg/Ml Im Once IM 11/05/23 22:01 295 mg ONCE ONE Administration Protocol Critical Care Time Critical Care Time Critical Care Time: Yes Total Critical Care Time: 45 Attestation: IV ativan, review of records, phenobarb protocol I attest to this time spent taking care of the patient Discharge Plan Discharge Clinical Impression: Acute alcoholic gastritis Qualifiers: Gastritis bleeding: with bleeding Qualified Code(s): K29.21 - Alcoholic gastritis with bleeding Alcohol withdrawal Qualifiers: Complication of substance-induced condition: with unspecified complication Q ualified Code(s): F10.939 - Alcohol use, unspecified with withdrawal, unspecified Patient Disposition: Admitted As Inpatient Interventions: Admission Worksheet (ED) Last Done: 11/05/23 22:45 Discharge Date/Time: 11/05/23 23:31
[2023-11-05 20:06] LABS: Amphetamine Screen Urine Not Detected (Not Detect); Barbiturates, Urine Not Detected (Not Detect); Benzodiazepines Screen Urine Not Detected (Not Detect); Buprenorphine Scr Not Detected (Not Detect); Cannabinoid Screen Urine Not Detected (Not Detect); Cocaine Screen Urine Not Detected (Not Detect); Fentanyl, urine Not Detected (Not Detect); Methadone Screen, Urine Not Detected (Not Detect); Opiate Screen Urine Not Detected (Not Detect); Oxycodone Screen Urine Not Detected (Not Detect); Phencyclidine Screen Urine Not Detected (Not Detect)
[2023-11-05 20:17] LABS: Alanine Aminotransferase 64 U/L (0-40); Albumin Level 5.3 g/dL (3.5-5.0); Alkaline Phosphatase 140 U/L (39-117); Anion Gap 31 (12-20); Aspartate Amino Transferase 56 U/L (5-37); Bilirubin Direct 0.2 mg/dL (0.0-0.5); Bilirubin Total 0.6 mg/dL (0.0-1.0); Blood Urea Nitrogen 11 mg/dL (9-16); Calcium 9.1 mg/dL (8.4-10.2); Carbon Dioxide 16 mmol/L (22-29); Chloride 90 mmol/L (96-108); Creatinine Clr Calc Pharmacy 118.4; Estimated Glomerular Filt Rate > 60; Ethanol 303 mg/dL; Glucose Random 115 mg/dL (60-115); Lipase 38 U/L (8-78); Magnesium 2.4 mg/dL (1.6-2.6); Potassium 4.3 mmol/L (3.3-5.1); Sodium 133 mmol/L (135-145)
[2023-11-05] MEDS: Magnesium Sulfate/H2O 2 GM/50 ML PIGGYBACK IV (20:28)
--- NOTE | 2023-11-05 20:39 | PC.NURSE ---
Pt presents to ED via EMS, reports alcohol use X2 days, last drink this morning but unsure what time. Showed EMS a toilet full of coffee ground emesis from today. Alert and oriented, breathing even and unlabored, skin clammy. Changed over into safety clothing. Pt denies any SI or HI. Reports frequent alcohol use, denies daily drinking or withdrawal seizures. Denies CP, pain, falls, recent illnesses. Sinus tach on bedside cardiac montior.
[2023-11-05] MEDS: Pantoprazole Sodium 40 MG/10 ML VIAL IVPUSH (21:21)
[2023-11-05 21:23] VITALS: BP 149/84; PULSE 110; RESP 18; O2SAT 97
--- NOTE | 2023-11-05 21:36 | P.HPHOSP_ITS ---
History of Present Illness Date of Service: 11/05/23 Chief Complaint: Alcohol withdrawal This is a 38-year-old male with pertinent history of alcohol use disorder, mood disorder, hypertension who presents to the emergency department for concerns of alcohol withdrawal and blood in vomitus. Patient states his last drink was on the day of presentation. He has been having tremors, anxiety and auditory hallucinations since he stopped drinking. Patient states he has been vomiting throughout the day. Has had 10 episodes of blood in emesis. EMS reported coffee-ground emesis. States he is seeking help for detox. No history of alcohol withdrawal seizures. No history of IV drug use. Patient is compliant with prescription home medications for hypertension and mood. No fever, chills, chest discomfort, palpitations, shortness of breath, changes in urinary or bowel habits. In the emergency department, patient was initiated on phenobarb protocol Review of Systems 2 Constitutional: Constitutional: Reports fatigue, Reports malaise and Reports weakness Cardiovascular: Cardiovascular: Reports no additional cardiovascular complaints Respiratory: Respiratory: Reports no additional respiratory complaints Gastrointestinal: Gastrointestinal: Reports coffee ground emesis, Reports vomiting and Reports hematemesis Genitourinary: Genitourinary: Reports no additional male genitourinary complaints Neurologic: Reports tremor(s) and Reports weakness Psychiatric: Psychiatric: Reports anxiety Endocrine: Endocrine: Reports fatigue PMFSH Medical History Hypertension Mood disorder Alcohol abuse Pertinent family history: No family history of early CAD Social History Alcohol intake: current Alcohol intake frequency: 3 or more drinks per day Alcohol type: hard liquor Patient Tobacco Use Status: Current everyday Tobacco user Smoked in Last 30 Days: Yes Use of substances other than those prescribed or required for medical reasons: No Advance Directives: No Advance Directives Information Provided: No Meds Allergies Allergy/AdvReac Type Severity Reaction Status Date / Time No Known Allergies Allergy Verified 11/05/23 19:23 Active Medications: Current Medications Pharmacy Consult (Consult Rx Etoh Phenob Im/Po) 1 each MISCELLANE ONCE PRN; Protocol PRN Reason: Consult order Home Medications ?Medication ?Instructions ?Recorded ?Confirmed ?Last Taken ?Type atenolol 100 mg tablet 1 tab PO DAILY 07/06/21 11/05/23 4 Days Ago History ~11/01/23 atorvastatin 40 mg tablet 1 tab PO DAILY 07/06/21 11/05/23 4 Days Ago History ~11/01/23 clonidine HCl 0.1 mg tablet 1 tab PO BID PRN anxiety 07/06/21 11/05/23 4 Days Ago History ~11/01/23 lisinopril 40 mg tablet 1 tab PO DAILY 07/06/21 11/05/23 4 Days Ago History ~11/01/23 methocarbamol 750 mg tablet 1 tab PO BEDTIME PRN restlessness 07/06/21 11/05/23 4 Days Ago History ~11/01/23 sertraline 100 mg tablet 1 tab PO DAILY 07/06/21 11/05/23 4 Days Ago History ~11/01/23 bupropion HCl 200 mg tablet,12 hr 200 mg PO DAILY 11/05/23 11/05/23 4 Days Ago History sustained-release ~11/01/23 omeprazole 20 mg capsule,delayed 20 mg PO DAILY 11/05/23 11/05/23 4 Days Ago History release ~11/01/23 Physical Exam 2 Vital Signs and Narrative: Vital Signs: Last Vital Signs Temp 98.7 F 11/05/23 19:22 Pulse 110 H 11/05/23 21:23 Resp 18 11/05/23 21:23 BP 149/84 H 11/05/23 21:23 Pulse Ox 97 11/05/23 21:23 O2 Del Method Room Air 11/05/23 21:23 BMI result Body Mass Index 28.1 Middle-aged male lying in bed in no distress Neck supple, no JVD Regular rate and rhythm, S1-S2 heard Regular breath sounds bilaterally, no wheezing or crackles appreciated Abdomen soft nontender, no guarding, no rigidity Patient is awake, alert and oriented to self, place, time and person ; no focal motor deficit, hand tremors present Psych: Anxious No pedal edema Results Labs 11/05/23 19:31 11/05/23 19:31 Labs: Laboratory Results - last 24 hr 11/05/23 11/05/23 19:31 19:33 MCV 82.2 MCH 29.1 MCHC 35.4 RDW 13.1 Plt Count 422 H D MPV 8.9 L Immature Gran % (Auto) 0.4 Neut % (Auto) 64.1 Lymph % (Auto) 29.3 [place] % (Auto) 5.8 Eos % (Auto) 0.1 Baso % (Auto) 0.3 Lymph # (Auto) 2.2 [place] # (Auto) 0.4 Eos # (Auto) 0.0 Baso # (Auto) 0.0 Abs Immat Gran (auto) 0.03 Absolute Neuts (auto) 4.9 Absolute Nucleated RBC 0.000 Nucleated RBC % (auto) 0.0 PT 12.1 INR 1.0 Anion Gap 31 H Estim Creat Clear Calc 118.4 Estimated GFR > 60 Random Glucose 115 Calcium 9.1 Magnesium 2.4 Total Bilirubin 0.6 Direct Bilirubin 0.2 AST 56 H ALT 64 H Alkaline Phosphatase 140 H Total Protein 9.0 H Albumin 5.3 H Lipase 38 Urine Opiates Screen Not Detected Ur Buprenorphine Scrn Not Detected Ur Oxycodone Screen Not Detected Urine Methadone Screen Not Detected Urine Fentanyl Screen Not Detected Ur Barbiturates Screen Not Detected Ur Phencyclidine Scrn Not Detected Ur Amphetamines Screen Not Detected U Benzodiazepines Scrn Not Detected Urine Cocaine Screen Not Detected U Marijuana (THC) Screen Not Detected Ethyl Alcohol 303 H* Assessment and Plan (1) Alcohol withdrawal: Qualifiers: Complication of substance-induced condition: with unspecified complication Qualified Code(s): F10.939 - Alcohol use, unspecified with withdrawal, unspecified Status: Acute (2) Hematemesis: Status: Acute Plan This is a 38-year-old male with pertinent history of alcohol use disorder, mood disorder, hypertension who presents to the emergency department for concerns of alcohol withdrawal and blood in vomitus. #. Alcohol withdrawal in a patient with alcohol use disorder: Initiated on phenobarb protocol in the ER. Initiating thiamine and folic acid. Consulted Addiction Team. #. Hematemesis: Initiated IV Protonix. No cirrhosis or varices. Will keep patient NPO and consult Gastroenterology. Closely monitor H&H #. Elevated liver enzymes due to alcohol use #. Hypertension: Resume home antihypertensives once able to take p.o. #. Mood disorder: Continue home mood stabilizers Med rec pending DVT prophylaxis: Mechanical Full code Admit as inpatient and will require two night minimum hospital stay for treatment of alcohol withdrawal, evaluation of hematemesis and close monitoring of hemodynamics, H&H (as above), which is not possible in a lesser acute setting. Quality Stroke Does the patient have a stroke diagnosis?: No VTE Prior VTE?: No VTE Risk Level:: Medical - moderate - high VTE Device Contraindication: N/A - Device Ordered VTE Drug Contraindication: Treatment Not Indicated
[2023-11-05] MEDS: PHENobarbitaL sodium 130 MG/ML IM ONCE 295 MG IM (21:53)
--- NOTE | 2023-11-05 22:03 | PC.NURSE ---
Pt reported an increase in withdrawal symptoms, CIWA 8. Provider alerted and pt medicated per MAR
--- NOTE | 2023-11-05 22:52 | PHA.MEDREC ---
Addendum entered by Keshia Mcgregor RPh 11/05/23 22:54: confirmed sertraline is only 1 tablet daily Original Note: Pharmacy Consult ? Medication Reconciliation Pharmacy has completed the medication reconciliation. Confirmed medications with patient. Patient states he ahs not taken his meds in about 4 days.
[2023-11-06] VITALS: BP 138/98; PULSE 110; RESP 18; TEMP 37.5; O2SAT 98
[2023-11-06] MEDS: 0.9 % Sodium Chloride Flush 3 ML SYRINGE IVFLUSH ×3 (00:11→17:38)
[2023-11-06 00:29] VITALS: BMI 29.3
[2023-11-06] MEDS: PHENobarbitaL sodium 130 MG/ML VIAL IM Q3Hx2 220 MG IM ×2 (01:05→04:25)
[2023-11-06 04:00] VITALS: BP 141/65; PULSE 110; RESP 16; TEMP 36.7; O2SAT 97
[2023-11-06] MEDS: Pantoprazole Sodium 40 MG/10 ML VIAL IVPUSH ×2 (05:51→17:37)
[2023-11-06] MEDS: Acetaminophen 325 MG TABLET 650 MG PO (05:55)
[2023-11-06 07:22] LABS: Hematocrit 37.5 % (42.0-52.0); Hemoglobin 13.3 g/dl (14.0-18.0); Mean Corpuscular HGB Conc 35.5 g/dl (31.0-36.0); Mean Corpuscular Hemoglobin 29.8 pg (27.0-33.0); Mean Corpuscular Volume 83.9 fL (80.0-98.0); Mean Platelet Volume 9.3 fL (9.4-12.4); Platelet Count 284 X10*3/uL (160-400); Red Blood Count 4.47 X10*6/uL (4.60-5.80); Red Cell Distribution Width 13.1 % (11.0-16.0); White Blood Count 10.8 X10*3/uL (4.8-10.8)
[2023-11-06 07:24] VITALS: BP 152/85; PULSE 111; RESP 20; TEMP 36.4; O2SAT 98
[2023-11-06 07:38] LABS: Anion Gap 24 (12-20); Blood Urea Nitrogen 11 mg/dL (9-16); Calcium 8.2 mg/dL (8.4-10.2); Carbon Dioxide 17 mmol/L (22-29); Chloride 90 mmol/L (96-108); Creatinine Clr Calc Pharmacy 134.2; Estimated Glomerular Filt Rate > 60; Glucose Random 81 mg/dL (60-115); Sodium 127 mmol/L (135-145)
[2023-11-06] MEDS: PHENobarbitaL 15 MG TABLET 45 MG PO ×2 (08:43→20:30)
[2023-11-06] MEDS: lisinopriL 40 MG TABLET PO (08:44)
[2023-11-06] MEDS: Sertraline HCL 100 MG TABLET PO (08:44)
[2023-11-06] MEDS: Atorvastatin Calcium 40 MG TABLET PO (08:44)
[2023-11-06] MEDS: cloNIDine HCL 0.1 MG TABLET PO (08:45)
[2023-11-06] MEDS: atenoloL 100 MG TABLET PO (08:45)
--- NOTE | 2023-11-06 09:39 | MHC.CM.PN ---
EMR REVIEWED, PT WITH ETOH WITHDRAWAL, PT REPORTS HE LIVES W/HIS , IS INDEP W/ALL CARE, DENIES USE OF DME/SERVICES, PT DOES REPORT HE JUST STARTED SEEING A PSYCHIATRIST AT [facility] AND ALSO REPORTS HE SEES A PCP THERE WELL, PT DECLINES SEEING A THERAPIST. PT EDUCATED ON AND DECLINES TO COMPLETE A HCP AT THIS TIME. GOAL FOR DC IS HOME. ANTIC PT WILL NEED TO BE SEEN BY RECOVERY TEAM.
[2023-11-06] MEDS: Thiamine HCL 100 MG in 0.9 % Sodium Chloride 100 ML 202 MG IV (10:05)
[2023-11-06] MEDS: buPROPion HCL 100 MG TABLET PO ×2 (10:29→20:29)
[2023-11-06] MEDS: Folic Acid 1 MG in 0.9 % Sodium Chloride 50 ML 100.4 MG IV (10:29)
--- NOTE | 2023-11-06 10:36 | MHC.SHP ---
Pre-Procedural Eval Section A - 24 Hr Update-Section A only Date of Service: 11/06/23 The patient is an INPATIENT: Yes Changes since office visit: No Cold of Flu in the past 2 weeks, No New Medical Problems, No Changes in Medication and No Patient answered all questions The patient has been examined within 24 hours of the surgical procedure. The History & Physical has been completed within 30 days and I have reviewed it.: Yes Section B - Complete if H&P > 30 days Chief Complaint: Alcohol withdrawal Allergies: Allergies Allergy/AdvReac Type Severity Reaction Status Date / Time No Known Allergies Allergy Verified 11/05/23 19:23 Plan I have reviewed the history and physical and performed a pertinent physical examination on my patient. No changes have occurred unless specified. Time Spent With Patient Time: Total time managing care of this patient today ____ minutes.
--- NOTE | 2023-11-06 10:36 | PM.EVENT ---
Event Note Date of Service: 11/06/23 Event Note: GI consult dictated EGD later today for evaluation of hematemesis/ Mr Williamson is aware of risks and benefits and agrees to proceed. Time Spent With Patient Time: Total time managing care of this patient today ____ minutes.
[2023-11-06] MEDS: hydrOXYzine HCL 25 MG TABLET PO (11:04)
[2023-11-06 11:36] VITALS: BP 132/74; PULSE 86; RESP 16; TEMP 37.2; O2SAT 98
--- NOTE | 2023-11-06 12:25 | HO.PM.IMPN ---
Subjective Subjective Date of Service: 11/06/23 Interval History: f/u on alcohol withdrawal has some tremors, further hematemsis EGD postponed d/t hyponatremia Physical Exam Vital Signs: Vital Signs: Last Vital Signs Temp 98.9 F 11/06/23 11:36 Pulse 86 11/06/23 11:36 Resp 16 11/06/23 11:36 BP 132/74 11/06/23 11:36 Pulse Ox 98 11/06/23 11:36 O2 Del Method Room Air 11/06/23 11:36 BMI result Body Mass Index 29.3 General: AO X 3, no acute distress Resp: CTA bilateral CVS: S1,S2,RRR GI: +BS, NT, no distention Skin: No rash Neuro: motor grossly intact, mild tremors in hands Psych: appropriate affect Objective Data Active Medications Acetaminophen (Acetaminophen 325 Mg Tablet) 650 mg PO Q6H PRN PRN Reason: Pain, Mild (Pain Scale 1-3), fever or headache Last Admin: 11/06/23 05:55 Dose: 650 mg Documented By: RHONA Atenolol (Atenolol 100 Mg Tablet) 100 mg PO DAILY [facility]; Protocol Last Admin: 11/06/23 08:45 Dose: 100 mg Documented By: ANILA Atorvastatin Calcium (Atorvastatin Calcium 40 Mg Tablet) 40 mg PO DAILY [facility] Last Admin: 11/06/23 08:44 Dose: 40 mg Documented By: ANILA Bupropion HCl (Bupropion Hcl 100 Mg Tablet) 100 mg PO BID [facility] Last Admin: 11/06/23 10:29 Dose: 100 mg Documented By: ANILA Calcium Carbonate (Calcium Carbonate 750 Mg Tab.Chew) 750 mg PO Q4H PRN PRN Reason: Heartburn Clonidine HCl (Clonidine Hcl 0.1 Mg Tablet) 0.1 mg PO BID PRN; Protocol PRN Reason: anxiety Last Admin: 11/06/23 08:45 Dose: 0.1 mg Documented By: ANILA Hydroxyzine HCl (Hydroxyzine Hcl 25 Mg Tablet) 25 mg PO Q6H PRN PRN Reason: anxiety/restlessness Last Admin: 11/06/23 11:04 Dose: 25 mg Documented By: ANILA Folic Acid 1 mg/ Sodium (Chloride) 50.2 mls @ 100.4 mls/hr IV DAILY [facility] Last Infusion: 11/06/23 12:14 Dose: Infused Documented By: ANILA Thiamine HCl 100 mg/ Sodium (Chloride) 101 mls @ 202 mls/hr IV DAILY [facility] Last Infusion: 11/06/23 11:25 Dose: Infused Documented By: ANILA Lisinopril (Lisinopril 40 Mg Tablet) 40 mg PO DAILY [facility]; Protocol Last Admin: 11/06/23 08:44 Dose: 40 mg Documented By: ANILA Magnesium Hydroxide (Milk Of Magnesia 30 Ml Oral.Susp) 30 ml PO DAILY PRN PRN Reason: Constipation Melatonin (Melatonin 3 Mg Tablet) 6 mg PO BEDTIME PRN PRN Reason: Insomnia Methocarbamol (Methocarbamol 750 Mg Tablet) 750 mg PO BEDTIME PRN PRN Reason: restlessness Ondansetron HCl (Ondansetron Hcl 4 Mg/2 Ml Vial) 4 mg IVPUSH Q8H PRN PRN Reason: Nausea and Vomiting Pantoprazole Sodium (Pantoprazole Sodium 40 Mg/10 Ml Vial) 40 mg IVPUSH BID@0630,1630 [facility] Pharmacy Consult (Consult Rx Etoh Phenob Im/Po) 1 each MISCELLANE ONCE PRN; Protocol PRN Reason: Consult order Phenobarbital (Phenobarbital 15 Mg Tablet) 45 mg PO BID [facility]; Protocol Stop: 11/07/23 21:01 Last Admin: 11/06/23 08:43 Dose: 45 mg Documented By: ANILA Phenobarbital (Phenobarbital 30 Mg Tablet) 30 mg PO BID [facility]; Protocol Stop: 11/09/23 21:01 Phenobarbital (Phenobarbital 30 Mg Tablet) 30 mg PO DAILY [facility]; Protocol Stop: 11/11/23 09:01 Sertraline HCl (Sertraline Hcl 100 Mg Tablet) 100 mg PO DAILY [facility] Last Admin: 11/06/23 08:44 Dose: 100 mg Documented By: ANILA Sodium Chloride (0.9 % Sodium Chloride Flush 3 Ml Syringe) 3 ml IVFLUSH QSHIFT [facility] Last Admin: 11/06/23 10:06 Dose: 3 ml Documented By: AIDECAIH Labs 11/06/23 06:37 11/06/23 06:37 Labs: Laboratory Results - last 24 hr 11/05/23 11/05/23 11/06/23 19:31 19:33 06:37 MCV 82.2 83.9 MCH 29.1 29.8 MCHC 35.4 35.5 RDW 13.1 13.1 Plt Count 422 H D 284 D MPV 8.9 L 9.3 L Immature Gran % (Auto) 0.4 Neut % (Auto) 64.1 Lymph % (Auto) 29.3 [place] % (Auto) 5.8 Eos % (Auto) 0.1 Baso % (Auto) 0.3 Lymph # (Auto) 2.2 [place] # (Auto) 0.4 Eos # (Auto) 0.0 Baso # (Auto) 0.0 Abs Immat Gran (auto) 0.03 Absolute Neuts (auto) 4.9 Absolute Nucleated RBC 0.000 0.000 Nucleated RBC % (auto) 0.0 0.0 PT 12.1 INR 1.0 Anion Gap 31 H 24 H Estim Creat Clear Calc 118.4 134.2 Estimated GFR > 60 > 60 Random Glucose 115 81 Calcium 9.1 8.2 L D Magnesium 2.4 Total Bilirubin 0.6 Direct Bilirubin 0.2 AST 56 H ALT 64 H Alkaline Phosphatase 140 H Total Protein 9.0 H Albumin 5.3 H Lipase 38 Urine Opiates Screen Not Detected Ur Buprenorphine Scrn Not Detected Ur Oxycodone Screen Not Detected Urine Methadone Screen Not Detected Urine Fentanyl Screen Not Detected Ur Barbiturates Screen Not Detected Ur Phencyclidine Scrn Not Detected Ur Amphetamines Screen Not Detected U Benzodiazepines Scrn Not Detected Urine Cocaine Screen Not Detected U Marijuana (THC) Screen Not Detected Ethyl Alcohol 303 H* Assessment and Plan (1) Hypertension: Status: Acute (2) Mood disorder: Status: Acute (3) Hematemesis: Status: Acute (4) Alcohol withdrawal: Status: Acute Plan This is a 38-year-old male with pertinent history of alcohol use disorder, mood disorder, hypertension who presents to the emergency department for concerns of alcohol withdrawal and blood in vomitus. Alcohol withdrawal in a patient with alcohol use disorder -Initiated on phenobarb protocol in the ER -continue thiamine and folic acid. -Addiction med Consult -Hydroxyzine for anxiety Hematemesis with little shift in H/H -continue IV PPI -EGD tomorrow Hyponatremia--? beer potomania, fluid restrictiona and monitor Elevated liver enzymes due to alcohol use Hypertension:Probably non compliant, home meds resume with good control Mood disorder: Continue home mood stabilizers DVT prophylaxis: Mechanical d/t gib Full code need for inpt: management of alcohol withdrawal, complicated by GI bleeding Quality Stroke Does the patient have a stroke diagnosis?: No VTE Prior VTE?: No VTE Risk Level:: Medical - moderate - high VTE Device Contraindication: N/A - Device Ordered VTE Drug Contraindication: Treatment Not Indicated
--- NOTE | 2023-11-06 14:08 | CONS_ITS ---
DATE OF SERVICE: 11/06/2023 REFERRING PHYSICIAN: Dr. Bernard REASON FOR CONSULTATION: Hematemesis. HISTORY OF PRESENT ILLNESS: The patient is a pleasant 38-year-old man who was admitted to the hospital with complaints of hematemesis and alcohol withdrawal. He has a history of heavy alcohol use with daily consumption of large amounts of liquor and reportedly had coffee-grounds emesis. According to EMS notes, since admission, he has had no further vomiting. Blood alcohol level on admission was elevated at 303. He denies any history of varicocele bleeding or peptic ulcer disease and denies using NSAIDs in large quantities. Hematocrit on admission was 43.8 and dropped to 37.5 after hydration. PAST MEDICAL HISTORY: 1. Alcohol abuse. 2. Mood disorder. 3. Hypertension. CURRENT MEDICATIONS: Current medication list is reviewed in the chart. ALLERGIES: THERE ARE NONE REPORTED. FAMILY HISTORY: This is reviewed with the patient and is noncontributory. SOCIAL HISTORY: There is no current substance use except alcohol. He does smoke. REVIEW OF SYSTEMS: SKIN: No pruritus. HEENT: Negative. CARDIOPULMONARY: He denies shortness of breath or chest pain. GASTROINTESTINAL: As above. GENITOURINARY: Negative. NEUROPSYCHIATRIC: Negative. PHYSICAL EXAMINATION: GENERAL: Shows a pleasant male, lying comfortably in bed. VITAL SIGNS: Reviewed in the electronic medical record and are stable. SKIN: Anicteric. HEENT: Shows no scleral icterus. NECK: Without lymphadenopathy or thyromegaly. LUNGS: Clear. HEART: Shows a regular rate and rhythm. S1, S2. No murmur. ABDOMEN: Soft without focal masses or tenderness. Bowel sounds are present. No organomegaly is noted. EXTREMITIES: Without edema. LABORATORY DATA AND IMAGING STUDIES: Reviewed. IMPRESSION: Hematemesis with a history of alcohol abuse. I discussed risks and benefits of upper endoscopy with him. He understands these and agrees to proceed. In the interim, I agree with treating him with IV fluids, antiemetics, and I discussed with him the need to avoid alcohol. Thanks for asking me to see him. I will follow him in the hospital with you. MD TONY Mercado/WAYNE / [phone]
[2023-11-06 15:10] LABS: Anion Gap 20 (12-20); Carbon Dioxide 20 mmol/L (22-29); Chloride 92 mmol/L (96-108); Potassium 4.4 mmol/L (3.3-5.1); Sodium 128 mmol/L (135-145)
[2023-11-06 15:32] VITALS: BP 109/59; PULSE 65; RESP 16; TEMP 36.9; O2SAT 97
[2023-11-06] MEDS: PHENobarbitaL sodium 130 MG/ML VIAL 65 MG IM (17:33)
[2023-11-06 20:00] VITALS: BP 143/74; PULSE 84; RESP 16; TEMP 36.8; O2SAT 99
[2023-11-06] MEDS: Melatonin 3 MG TABLET 6 MG PO (20:30)
[2023-11-06] MEDS: guaiFEN/Codeine SF 200/20/10ML 10 ML LIQUID 5 ML PO (21:00)
[2023-11-07] VITALS (10 sets, daily range): BP systolic 85–140; BP diastolic 41–91; PULSE 68–95; RESP 16–20; TEMP 36.6–37.7; O2SAT 96–99
[2023-11-07] MEDS: guaiFEN/Codeine SF 200/20/10ML 10 ML LIQUID 5 ML PO ×2 (03:25→16:19)
[2023-11-07] MEDS: Pantoprazole Sodium 40 MG/10 ML VIAL IVPUSH ×2 (05:57→16:20)
[2023-11-07] MEDS: 0.9 % Sodium Chloride Flush 3 ML SYRINGE IVFLUSH ×2 (09:16→16:20)
[2023-11-07] MEDS: Folic Acid 1 MG in 0.9 % Sodium Chloride 50 ML 100.4 MG IV (09:16)
[2023-11-07] MEDS: lisinopriL 40 MG TABLET PO (09:17)
[2023-11-07] MEDS: atenoloL 100 MG TABLET PO (09:17)
[2023-11-07] MEDS: Atorvastatin Calcium 40 MG TABLET PO (09:17)
[2023-11-07] MEDS: PHENobarbitaL 15 MG TABLET 45 MG PO (09:17)
[2023-11-07] MEDS: buPROPion HCL 100 MG TABLET PO (09:17)
[2023-11-07] MEDS: Sertraline HCL 100 MG TABLET PO (09:17)
[2023-11-07] MEDS: Calcium Carbonate 750 MG TAB.CHEW PO (09:28)
[2023-11-07] MEDS: Thiamine HCL 100 MG in 0.9 % Sodium Chloride 100 ML 202 MG IV (09:54)
[2023-11-07 12:07] LABS: Blood Urea Nitrogen 9 mg/dL (9-16); Creatinine Clr Calc Pharmacy 132.3; Estimated Glomerular Filt Rate > 60; Glucose Random 107 mg/dL (60-115)
[2023-11-07 12:21] LABS: Anion Gap 17 (12-20); Calcium 9.4 mg/dL (8.4-10.2); Carbon Dioxide 27 mmol/L (22-29); Chloride 92 mmol/L (96-108); Potassium 3.8 mmol/L (3.3-5.1); Sodium 132 mmol/L (135-145)
--- NOTE | 2023-11-07 13:10 | MHC.CM.PN ---
EMR reviewed and per MD rounds, pt is not medically cleared for discharge due to management of ETOH W/D and GI bleeding.
--- NOTE | 2023-11-07 13:30 | HO.PM.IMPN ---
Subjective Subjective Date of Service: 11/07/23 Interval History: f/u on alcohol withdrawal Patient is pretty steady no tremors and no bleeding sodium is 132 Physical Exam Vital Signs: Vital Signs: Last Vital Signs Temp 100 F 11/07/23 11:32 Pulse 75 11/07/23 11:32 Resp 18 11/07/23 11:32 BP 121/76 11/07/23 11:32 Pulse Ox 97 11/07/23 11:32 O2 Del Method Room Air 11/07/23 11:32 O2 Flow Rate 98 11/07/23 03:54 BMI result Body Mass Index 29.3 Objective Data Active Medications Acetaminophen (Acetaminophen 325 Mg Tablet) 650 mg PO Q6H PRN PRN Reason: Pain, Mild (Pain Scale 1-3), fever or headache Last Admin: 11/06/23 05:55 Dose: 650 mg Documented By: RHONA Atenolol (Atenolol 100 Mg Tablet) 100 mg PO DAILY [facility]; Protocol Last Admin: 11/07/23 09:17 Dose: 100 mg Documented By: DAREK Atorvastatin Calcium (Atorvastatin Calcium 40 Mg Tablet) 40 mg PO DAILY [facility] Last Admin: 11/07/23 09:17 Dose: 40 mg Documented By: DAREK Bupropion HCl (Bupropion Hcl 100 Mg Tablet) 100 mg PO BID [facility] Last Admin: 11/07/23 09:17 Dose: 100 mg Documented By: DAREK Calcium Carbonate (Calcium Carbonate 750 Mg Tab.Chew) 750 mg PO Q4H PRN PRN Reason: Heartburn Last Admin: 11/07/23 09:28 Dose: 750 mg Documented By: DAREK Clonidine HCl (Clonidine Hcl 0.1 Mg Tablet) 0.1 mg PO BID PRN; Protocol PRN Reason: anxiety Last Admin: 11/06/23 08:45 Dose: 0.1 mg Documented By: ANILA Guaifenesin/Codeine Phosphate (Guaifen/Codeine Sf 200/20/10ml 10 Ml Liquid) 5 ml PO Q6H PRN PRN Reason: Cough Last Admin: 11/07/23 03:25 Dose: 5 ml Documented By: RHONA Hydroxyzine HCl (Hydroxyzine Hcl 25 Mg Tablet) 25 mg PO Q6H PRN PRN Reason: anxiety/restlessness Last Admin: 11/06/23 11:04 Dose: 25 mg Documented By: ANILA Folic Acid 1 mg/ Sodium (Chloride) 50.2 mls @ 100.4 mls/hr IV DAILY [facility] Last Infusion: 11/07/23 09:50 Dose: Infused Documented By: DAREK Thiamine HCl 100 mg/ Sodium (Chloride) 101 mls @ 202 mls/hr IV DAILY [facility] Last Infusion: 11/07/23 10:40 Dose: Infused Documented By: DAREK Lisinopril (Lisinopril 40 Mg Tablet) 40 mg PO DAILY [facility]; Protocol Last Admin: 11/07/23 09:17 Dose: 40 mg Documented By: DAREK Magnesium Hydroxide (Milk Of Magnesia 30 Ml Oral.Susp) 30 ml PO DAILY PRN PRN Reason: Constipation Melatonin (Melatonin 3 Mg Tablet) 6 mg PO BEDTIME PRN PRN Reason: Insomnia Last Admin: 11/06/23 20:30 Dose: 6 mg Documented By: RHONA Methocarbamol (Methocarbamol 750 Mg Tablet) 750 mg PO BEDTIME PRN PRN Reason: restlessness Ondansetron HCl (Ondansetron Hcl 4 Mg/2 Ml Vial) 4 mg IVPUSH Q8H PRN PRN Reason: Nausea and Vomiting Pantoprazole Sodium (Pantoprazole Sodium 40 Mg/10 Ml Vial) 40 mg IVPUSH BID@0630,1630 [facility] Last Admin: 11/07/23 05:57 Dose: 40 mg Documented By: RHONA Pharmacy Consult (Consult Rx Etoh Phenob Im/Po) 1 each MISCELLANE ONCE PRN; Protocol PRN Reason: Consult order Phenobarbital (Phenobarbital 15 Mg Tablet) 45 mg PO BID [facility]; Protocol Stop: 11/07/23 21:01 Last Admin: 11/07/23 09:17 Dose: 45 mg Documented By: DAREK Phenobarbital (Phenobarbital 30 Mg Tablet) 30 mg PO BID [facility]; Protocol Stop: 11/09/23 21:01 Phenobarbital (Phenobarbital 30 Mg Tablet) 30 mg PO DAILY [facility]; Protocol Stop: 11/11/23 09:01 Sertraline HCl (Sertraline Hcl 100 Mg Tablet) 100 mg PO DAILY [facility] Last Admin: 11/07/23 09:17 Dose: 100 mg Documented By: DAREK Sodium Chloride (0.9 % Sodium Chloride Flush 3 Ml Syringe) 3 ml IVFLUSH QSHIFT [facility] Last Admin: 11/07/23 09:16 Dose: 3 ml Documented By: DAREK Labs 11/06/23 06:37 11/07/23 11:43 Labs: Laboratory Results - last 24 hr 11/06/23 11/07/23 14:49 11:43 Anion Gap 20 17 Estim Creat Clear Calc 132.3 Estimated GFR > 60 Random Glucose 107 Calcium 9.4 D Assessment and Plan (1) Hypertension: Status: Acute (2) Mood disorder: Status: Acute (3) Hematemesis: Status: Acute (4) Alcohol withdrawal: Status: Acute Plan This is a 38-year-old male with pertinent history of alcohol use disorder, mood disorder, hypertension who presents to the emergency department for concerns of alcohol withdrawal and blood in vomitus. Alcohol withdrawal in a patient with alcohol use disorder -Initiated on phenobarb protocol in the ER -continue thiamine and folic acid. -Addiction med Consult offer him resources but declined in favor of his own plan with [facility] -Hydroxyzine for anxiety Hematemesis with little shift in H/H -continue IV PPI -EGD today by : Erosive esophagitis without active bleeding no varices antral biopsies obtained. REC: bid ppi x1 month then daily repeat EGD in `12 w Hyponatremia--? beer potomania, fluid restriction and ,monitor, sodium Elevated liver enzymes due to alcohol use Hypertension:Probably non compliant, home meds resume with good control Mood disorder: Continue home mood stabilizers DVT prophylaxis: Mechanical d/t gib Full code need for inpt: management of alcohol withdrawal, complicated by GI bleeding Quality Stroke Does the patient have a stroke diagnosis?: No VTE Prior VTE?: No VTE Risk Level:: Medical - moderate - high VTE Device Contraindication: N/A - Device Ordered VTE Drug Contraindication: Treatment Not Indicated
[2023-11-07] MEDS: Lactated Ringers 1,000 ML 80 ML IVCONT (13:42)
--- NOTE | 2023-11-07 13:44 | MHC.RECOVRN ---
Addendum entered by Alexia Dwyer 11/07/23 13:47: AUDIT-C Brief Intervention Pt had positive screen for unhealthy alcohol use on admission. Pt declined meeting to discuss alcohol use. Original Note: Pt declined meeting with [facility]. Written resources provided with t/w contact information if pt has questions or concerns.
--- NOTE | 2023-11-07 13:49 | HO.ANESPROP2 ---
HPI - Anesthesia Eval Consult details Narrative: for EGD PMFSH Active Problems Active Problems: All Active Problems Hypertension (Acute) Mood disorder (Acute) Hematemesis (Acute) Alcohol withdrawal (Acute) Acute alcoholic gastritis (Acute) Past Medical History Medical History Hypertension Mood disorder Alcohol abuse Family History Family history of problems with anesthesia: No Surgical History History of Problems with Anesthesia: No Social History Social History Household Members: Family Housing: Apartment Do you presently have visiting nurse or other home services: No Alcohol intake: current Alcohol intake frequency: 3 or more drinks per day Alcohol type: hard liquor Patient Tobacco Use Status: Current everyday Tobacco user Tobacco use type: Cigarette Smoked in Last 30 Days: Yes e-Cigarette/Vaping Use: Never Used Patient Interested in Nicotine Replacement: No Patient Given Instructions on How to Stop Smoking: Yes Date Education Initiated: 11/05/23 Second Hand Smoke Exposure: No Use of substances other than those prescribed or required for medical reasons: No Substance Use Type: Caffiene Substance Use Type Other:: pt denies Currently Displaying Signs/Symptoms of Drug Intoxication Withdrawal: No Any prior treatment program specific to substance use: No Have you been hit, kicked, punched, or otherwise hurt by someone within the past year? If so, by whom?: No Do you feel safe in your current relationship?: Yes Is there a partner from a previous relationship who is making you feel unsafe now?: No Are you made to feel afraid or neglected: No Spiritual Healthcare Practices: none per pt Zoroastrian Healthcare Practices: none per pt Cultural Healthcare Practices: none per pt Are you DNR?: No Advance Directives: No Advance Directives Information Provided: No Advance Directives on File: No Do you have a plan to hurt others: No Plan Recently lost weight without trying: No Eating poorly because of decreased appetite: No Nutrition Risks: No Nutritional Risk Poor oral hygiene: No service: No Meds Allergies Allergy/AdvReac Type Severity Reaction Status Date / Time No Known Allergies Allergy Verified 11/05/23 19:23 Active Medications: Current Medications Acetaminophen (Acetaminophen 325 Mg Tablet) 650 mg PO Q6H PRN PRN Reason: Pain, Mild (Pain Scale 1-3), fever or headache Last Admin: 11/06/23 05:55 Dose: 650 mg Atenolol (Atenolol 100 Mg Tablet) 100 mg PO DAILY [facility]; Protocol Last Admin: 11/07/23 09:17 Dose: 100 mg Atorvastatin Calcium (Atorvastatin Calcium 40 Mg Tablet) 40 mg PO DAILY [facility] Last Admin: 11/07/23 09:17 Dose: 40 mg Bupropion HCl (Bupropion Hcl 100 Mg Tablet) 100 mg PO BID [facility] Last Admin: 11/07/23 09:17 Dose: 100 mg Calcium Carbonate (Calcium Carbonate 750 Mg Tab.Chew) 750 mg PO Q4H PRN PRN Reason: Heartburn Last Admin: 11/07/23 09:28 Dose: 750 mg Clonidine HCl (Clonidine Hcl 0.1 Mg Tablet) 0.1 mg PO BID PRN; Protocol PRN Reason: anxiety Last Admin: 11/06/23 08:45 Dose: 0.1 mg Guaifenesin/Codeine Phosphate (Guaifen/Codeine Sf 200/20/10ml 10 Ml Liquid) 5 ml PO Q6H PRN PRN Reason: Cough Last Admin: 11/07/23 03:25 Dose: 5 ml Hydroxyzine HCl (Hydroxyzine Hcl 25 Mg Tablet) 25 mg PO Q6H PRN PRN Reason: anxiety/restlessness Last Admin: 11/06/23 11:04 Dose: 25 mg Folic Acid 1 mg/ Sodium (Chloride) 50.2 mls @ 100.4 mls/hr IV DAILY [facility] Last Infusion: 11/07/23 09:50 Dose: Infused Thiamine HCl 100 mg/ Sodium (Chloride) 101 mls @ 202 mls/hr IV DAILY [facility] Last Infusion: 11/07/23 10:40 Dose: Infused Lactated Ringer's (Lr) 1,000 mls @ 80 mls/hr IVCONT .[id number] [facility] Last Admin: 11/07/23 13:42 Dose: 80 mls/hr Lisinopril (Lisinopril 40 Mg Tablet) 40 mg PO DAILY [facility]; Protocol Last Admin: 11/07/23 09:17 Dose: 40 mg Magnesium Hydroxide (Milk Of Magnesia 30 Ml Oral.Susp) 30 ml PO DAILY PRN PRN Reason: Constipation Melatonin (Melatonin 3 Mg Tablet) 6 mg PO BEDTIME PRN PRN Reason: Insomnia Last Admin: 11/06/23 20:30 Dose: 6 mg Methocarbamol (Methocarbamol 750 Mg Tablet) 750 mg PO BEDTIME PRN PRN Reason: restlessness Ondansetron HCl (Ondansetron Hcl 4 Mg/2 Ml Vial) 4 mg IVPUSH Q8H PRN PRN Reason: Nausea and Vomiting Pantoprazole Sodium (Pantoprazole Sodium 40 Mg/10 Ml Vial) 40 mg IVPUSH BID@0630,1630 [facility] Last Admin: 11/07/23 05:57 Dose: 40 mg Pharmacy Consult (Consult Rx Etoh Phenob Im/Po) 1 each MISCELLANE ONCE PRN; Protocol PRN Reason: Consult order Phenobarbital (Phenobarbital 15 Mg Tablet) 45 mg PO BID [facility]; Protocol Stop: 11/07/23 21:01 Last Admin: 11/07/23 09:17 Dose: 45 mg Phenobarbital (Phenobarbital 30 Mg Tablet) 30 mg PO BID [facility]; Protocol Stop: 11/09/23 21:01 Phenobarbital (Phenobarbital 30 Mg Tablet) 30 mg PO DAILY [facility]; Protocol Stop: 11/11/23 09:01 Sertraline HCl (Sertraline Hcl 100 Mg Tablet) 100 mg PO DAILY [facility] Last Admin: 11/07/23 09:17 Dose: 100 mg Sodium Chloride (0.9 % Sodium Chloride Flush 3 Ml Syringe) 3 ml IVFLUSH QSHIFT [facility] Last Admin: 11/07/23 09:16 Dose: 3 ml Home Medications ?Medication ?Instructions ?Recorded ?Confirmed ?Last Taken ?Type atenolol 100 mg tablet 1 tab PO DAILY 07/06/21 11/05/23 4 Days Ago History ~11/01/23 atorvastatin 40 mg tablet 1 tab PO DAILY 07/06/21 11/05/23 4 Days Ago History ~11/01/23 clonidine HCl 0.1 mg tablet 1 tab PO BID PRN anxiety 07/06/21 11/05/23 4 Days Ago History ~11/01/23 lisinopril 40 mg tablet 1 tab PO DAILY 07/06/21 11/05/23 4 Days Ago History ~11/01/23 methocarbamol 750 mg tablet 1 tab PO BEDTIME PRN restlessness 07/06/21 11/05/23 4 Days Ago History ~11/01/23 sertraline 100 mg tablet 1 tab PO DAILY 07/06/21 11/05/23 4 Days Ago History ~11/01/23 bupropion HCl 200 mg tablet,12 hr 200 mg PO DAILY 11/05/23 11/05/23 4 Days Ago History sustained-release ~11/01/23 omeprazole 20 mg capsule,delayed 20 mg PO DAILY 11/05/23 11/05/23 4 Days Ago History release ~11/01/23 Exam Height,Weight and Vital Signs: Height 5 ft 5 in Weight 80 kg Last Vital Signs Temp 99.0 F 11/07/23 13:31 Pulse 77 11/07/23 13:31 Resp 16 11/07/23 13:31 BP 112/68 11/07/23 13:31 Pulse Ox 97 11/07/23 13:31 O2 Del Method Room Air 11/07/23 13:31 O2 Flow Rate 98 11/07/23 03:54 Pertinent Lab Results Pertinent Lab Results: Laboratory Tests 11/05/23 11/05/23 11/06/23 19:31 19:33 06:37 WBC 7.7 10.8 RBC 5.33 D 4.47 L Hgb 15.5 D 13.3 L Hct 43.8 D 37.5 L MCV 82.2 83.9 MCH 29.1 29.8 MCHC 35.4 35.5 RDW 13.1 13.1 Plt Count 422 H D 284 D MPV 8.9 L 9.3 L Immature Gran % (Auto) 0.4 Neut % (Auto) 64.1 Lymph % (Auto) 29.3 Newton % (Auto) 5.8 Eos % (Auto) 0.1 Baso % (Auto) 0.3 Lymph # (Auto) 2.2 Newton # (Auto) 0.4 Eos # (Auto) 0.0 Baso # (Auto) 0.0 Abs Immat Gran (auto) 0.03 Absolute Neuts (auto) 4.9 Absolute Nucleated RBC 0.000 0.000 Nucleated RBC % (auto) 0.0 0.0 PT 12.1 INR 1.0 Sodium 133 L 127 L Potassium 4.3 4.0 Chloride 90 L 90 L Carbon Dioxide 16 L 17 L Anion Gap 31 H 24 H BUN 11 11 Creatinine 0.80 0.72 Estim Creat Clear Calc 118.4 134.2 Estimated GFR > 60 > 60 Random Glucose 115 81 Calcium 9.1 8.2 L D Magnesium 2.4 Total Bilirubin 0.6 Direct Bilirubin 0.2 AST 56 H ALT 64 H Alkaline Phosphatase 140 H Total Protein 9.0 H Albumin 5.3 H Lipase 38 Urine Opiates Screen Not Detected Ur Buprenorphine Scrn Not Detected Ur Oxycodone Screen Not Detected Urine Methadone Screen Not Detected Urine Fentanyl Screen Not Detected Ur Barbiturates Screen Not Detected Ur Phencyclidine Scrn Not Detected Ur Amphetamines Screen Not Detected U Benzodiazepines Scrn Not Detected Urine Cocaine Screen Not Detected U Marijuana (THC) Screen Not Detected Ethyl Alcohol 303 H* 11/06/23 11/07/23 14:49 11:43 WBC RBC Hgb Hct MCV MCH MCHC RDW Plt Count MPV Immature Gran % (Auto) Neut % (Auto) Lymph % (Auto) Newton % (Auto) Eos % (Auto) Baso % (Auto) Lymph # (Auto) Newton # (Auto) Eos # (Auto) Baso # (Auto) Abs Immat Gran (auto) Absolute Neuts (auto) Absolute Nucleated RBC Nucleated RBC % (auto) PT INR Sodium 128 L 132 L Potassium 4.4 3.8 Chloride 92 L 92 L Carbon Dioxide 20 L 27 Anion Gap 20 17 BUN 9 Creatinine 0.73 Estim Creat Clear Calc 132.3 Estimated GFR > 60 Random Glucose 107 Calcium 9.4 D Magnesium Total Bilirubin Direct Bilirubin AST ALT Alkaline Phosphatase Total Protein Albumin Lipase Urine Opiates Screen Ur Buprenorphine Scrn Ur Oxycodone Screen Urine Methadone Screen Urine Fentanyl Screen Ur Barbiturates Screen Ur Phencyclidine Scrn Ur Amphetamines Screen U Benzodiazepines Scrn Urine Cocaine Screen U Marijuana (THC) Screen Ethyl Alcohol Airway Mallampati Class: II TM Dist: >3cm Neck ROM: Full Loose/Missing/Broken Teeth: No Heart: ok Lungs: ok Assessment and Plan Assessment Anesthesia Assessment: Anesthesia Plan Discussed and Chart Reviewed Final Anesthetic Review Family History of Problems with Anesthesia: No History of Problems with Anesthesia: No NPO: Yes ASA Class: III Final Preanesthetic Review: No Changes in Pt Med Stat, Meds/Allgs Chart Reviewed, Consent Obtained/Reviewed and Anes Risks/Benef Reviewed Patient Risk: Intermediate Procedure Risk: Intermediate Anesthetic Plan Anesthetic Plan: Agree w/ Assess. and Plan and TIVA Disposition: Standard PACU
--- NOTE | 2023-11-07 14:55 | MHC.SHP ---
Pre-Procedural Eval Section A - 24 Hr Update-Section A only Date of Service: 11/07/23 The patient is an INPATIENT: Yes Changes since office visit: No Cold of Flu in the past 2 weeks, No New Medical Problems, No Changes in Medication and No Patient answered all questions The patient has been examined within 24 hours of the surgical procedure. The History & Physical has been completed within 30 days and I have reviewed it.: Yes Section B - Complete if H&P > 30 days Chief Complaint: Alcohol withdrawal Allergies: Allergies Allergy/AdvReac Type Severity Reaction Status Date / Time No Known Allergies Allergy Verified 11/05/23 19:23 Plan I have reviewed the history and physical and performed a pertinent physical examination on my patient. No changes have occurred unless specified. Time Spent With Patient Time: Total time managing care of this patient today ____ minutes.
--- NOTE | 2023-11-07 15:11 | PM.OP ---
Brief Operative Note Date of Service: 11/07/23 Pre-op diagnosis: gi bleed Post-op diagnosis: same (erosive esophagitis) Procedure: EGD biopsy Surgeon: Tommie Pacheco MD Anesthesia: MAC Was an Manager Business Operations used for this Procedure?: No Estimated blood loss (mL): 1 Pathology: other Condition: stable Disposition: PACU
--- NOTE | 2023-11-07 15:12 | PM.EVENT ---
Event Note Date of Service: 11/07/23 Event Note: EGD dictated Erosive esophagitis without active bleeding no varices antral biopsies obtained. REC: bid ppi x1 month then daily repeat EGD in `12 weeks avoid alcohol Time Spent With Patient Time: Total time managing care of this patient today ____ minutes.
--- NOTE | 2023-11-07 15:57 | OP_ITS ---
DATE OF SERVICE: 11/07/2023 SURGEON: Tommie Pacheco MD INDICATIONS: Hematemesis. PREOPERATIVE DIAGNOSIS: POSTOPERATIVE DIAGNOSIS: PROCEDURE PERFORMED: Upper endoscopy with biopsy. ESTIMATED BLOOD LOSS: COMPLICATIONS: ANESTHESIA: Monitored anesthesia care. ASSISTANTS: SPECIMENS: DESCRIPTION OF PROCEDURE: A history and physical was performed. The risks and benefits of the procedure were explained to the patient and informed consent was obtained. The patient was placed in the left lateral decubitus position. The Olympus video gastroscope was introduced into the esophagus, stomach, and duodenum. Examination was performed and the scope was removed. He tolerated the procedure well and was returned to recovery area in stable condition. FINDINGS: Esophagus: There was erosive esophagitis involving the distal 1/3 of the esophagus with no active bleeding. No varices were identified. Stomach: The stomach showed no evidence of masses, ulcers, or polyps. Antral biopsies were obtained. Duodenum: The bulb and 2nd portion were normal. IMPRESSION: Erosive esophagitis. RECOMMENDATIONS: 1. Follow up the biopsy results. 2. B.i.d. proton pump inhibitor for 1 month, then daily. 3. Follow up endoscopy in 12 weeks to assess for healing of erosive esophagitis. MD TONY Mercado/WAYNE / [phone]
[2023-11-07] MEDS: Omeprazole 40 MG CAPSULE.DR PO (17:05)
--- NOTE | 2023-11-07 18:03 | PM.DS ---
DS: Providers Provider Date of Service: 11/07/23 Date of admission: 11/05/23 21:34 Primary care physician: Unknown Physician Consults: 11/05/23 21:34 Addiction Medicine Routine Consulting Provider: Addiction Covering Reason for consultation: alcohol withdrawal 11/05/23 21:50 Consult to Gastroenterology Routine Consulting Provider: Tommie Pacheco Reason for consultation: Hematemesis DS: Diagnosis Discharge Diagnosis (1) Hypertension: Status: Acute (2) Mood disorder: Status: Acute (3) Hematemesis: Status: Acute (4) Alcohol withdrawal: Status: Acute DS: Summary Hospital Course Hospital Course: Admission follow up Chief Complaint: Alcohol withdrawal This is a 38-year-old male with pertinent history of alcohol use disorder, mood disorder, hypertension who presents to the emergency department for concerns of alcohol withdrawal and blood in vomitus. Patient states his last drink was on the day of presentation. He has been having tremors, anxiety and auditory hallucinations since he stopped drinking. Patient states he has been vomiting throughout the day. Has had 10 episodes of blood in emesis. EMS reported coffee-ground emesis. States he is seeking help for detox. No history of alcohol withdrawal seizures. No history of IV drug use. Patient is compliant with prescription home medications for hypertension and mood. No fever, chills, chest discomfort, palpitations, shortness of breath, changes in urinary or bowel habits. In the emergency department, patient was initiated on phenobarb protocol Hospital course: Alcohol withdrawal in a patient with alcohol use disorder. This was managed with Phenobarbital per protocol with rapid improvement. He presently shows no symptoms of withdrawal. He was evaluated by the recovery team and was offered outpatient resources which he declined in favor of his own resource. He was encouraged to avoid alcohol or cut down signficantly and was made aware of short term and correction health impacts of alcohol abuse. He will make a concerted effort to stop drinking. Hematemesis with little shift mild acute blood loss anemia,, He was on IV PPI. He had EGD on 11.06 with the following finding and recommendations Erosive esophagitis without active bleeding no varices antral biopsies obtained. REC: bid ppi x1 month then daily repeat EGD in `12 w He is prescribed prilosec 40 mg twice daily x 1 month then daily, and 3 months follow up with GI Hyponatremia--managed with fluid restriction with sodium going from 126 to now 132. Elevated liver enzymes due to alcohol use, outpatient follow up Hypertension:Probably non compliant. To continue home medications BPs were normal during with home meds Final diagnoses: Alcohol withdrawal Alcoholic gastritis acute blood loss anemia due to gi bleeding Hyponatremia Time Attestation Discharge Coordination Time (in mins): 35 Quality: Safe Use of Opioids Does Pt have an Active Cancer Diagnosis on the Problem List?: No Quality: Stroke Does the patient have a stroke diagnosis?: No Physical Exam Vital Signs: Vital Signs: Last Vital Signs Temp 97.8 F 11/07/23 15:38 Pulse 68 11/07/23 15:38 Resp 18 11/07/23 15:38 BP 111/70 11/07/23 15:55 Pulse Ox 97 11/07/23 15:38 O2 Del Method Room Air 11/07/23 15:38 O2 Flow Rate 98 11/07/23 03:54 BMI result Body Mass Index 29.3 General: AO X 3, no acute distress Resp: CTA bilateral CVS: S1,S2,RRR GI: +BS, NT, no distention Skin: No rash Neuro: motor grossly intact Psych: appropriate affect DS: Data Data Completed and Pending Pending studies at discharge: Pending at discharge 11/07/23 15:04 Surgical [PTH] Routine Labs on day of discharge: Laboratory Results - last 24 hr 11/07/23 11:43 Sodium 132 L Potassium 3.8 Chloride 92 L Carbon Dioxide 27 Anion Gap 17 BUN 9 Creatinine 0.73 Estim Creat Clear Calc 132.3 Estimated GFR > 60 Random Glucose 107 Calcium 9.4 D Discharge Plan Discharge Anticipated Discharge Date/Time: 11/07/23 17:55 Patient Disposition: Home, Self-Care Discharge Diagnosis: Alcohol wihdrawal, alcoholic gastritis, gi bleeding Referrals: Physician,Unknown J [Primary Care Provider] - 1 Week Discharge Medications: New omeprazole 40 mg Capsule,Delayed Release(Dr/Ec) See Rx Instructions .ROUTE .COMPLEX Qty: 120 0RF Rx Instructions: tablet twice daily for 30 days, then take once daily Continued hydroxyzine HCl 25 mg tablet 25 mg PO TID PRN (Reason: anxiety) Qty: 21 0RF atorvastatin 40 mg tablet 1 tab PO DAILY clonidine HCl 0.1 mg tablet 1 tab PO BID PRN (Reason: anxiety) atenolol 100 mg tablet 1 tab PO DAILY sertraline 100 mg tablet 1 tab PO DAILY methocarbamol 750 mg tablet 1 tab PO BEDTIME PRN (Reason: restlessness) lisinopril 40 mg tablet 1 tab PO DAILY omeprazole 20 mg capsule,delayed release(DR/EC) 20 mg PO DAILY bupropion HCl 200 mg tablet sustained-release 12 hr 200 mg PO DAILY Discharge Orders: Discharge Order (Routine); Ordered 11/07/23 Ordered By: Bowen Knight Diet: Advance to usual diet Activity on Discharge: As tolerated Stand Alone Forms: Patient Portal Discharge page Print Language: [place]an Care Plan Goals: Abstinence from alchol, recovery from alcholic gastritis Health Concerns: chronic alcohol use disorder alcohol withdrawal alcoholic gastritis Plan of Treatment: Avoid alcohol Follow up with the resources you said you had lined up follow up with your doctor follow up with Dr. Pacheco in 3 months follow up with your primary care provider in a week, call for appointment Assessment: see above Discharge Date/Time: 11/07/23 18:26
== END 2023-11-07 18:26 | disposition home or self-care (01) | DRG 242 ==
LOC: HO.ED 21:32 → HO.EDOVER 21:38 → HO.IMC 22:42
PROVIDERS: Internal Medicine Gastroenterology; Physician Assistant; Admitting Provider Student in an Organized Health Care Education/Training Program; Emergency Provider Emergency Medicine; Visit Provider Internal Medicine
PROC: 0DB78ZX Excision of Stomach, Pylorus, Via Natural or Artificial Opening Endoscopic, Diagnostic (ICD-10-PCS; principal; 2023-11-07 14:20)
DX: K22.11 Ulcer of esophagus with bleeding (principal); K29.21 Alcoholic gastritis with bleeding; D62 Acute posthemorrhagic anemia; E87.1 Hypo-osmolality and hyponatremia; F10.129 Alcohol abuse with intoxication, unspecified; F17.210 Nicotine dependence, cigarettes, uncomplicated; F39 Unspecified mood [affective] disorder; I10 Essential (primary) hypertension; Z71.6 Tobacco abuse counseling; Y90.8 Blood alcohol level of 240 mg/100 ml or more; Z71.41 Alcohol abuse counseling and surveillance of alcoholic; F10.139 Alcohol abuse with withdrawal, unspecified; Z79.899 Other long term (current) drug therapy
CPT/HCPCS: 36415; 74176; 80048; 80051; 80076; 80307; 83690; 83735; 85025; 85027; 85610; 88305; 88313; 88342; 93005; 99285; J2060; J2405; J2470; J2560; J2704; J3411; J3475; J7120

== ENCOUNTER → 2023-11-05 19:22 | Outpatient (BNV) | payer OTHER, SELFPAY | PROVIDERS: Admitting Provider Student in an Organized Health Care Education/Training Program; Emergency Provider Emergency Medicine; Visit Provider Internal Medicine Cardiovascular Disease | DX: R00.0 Tachycardia, unspecified (principal) | CPT/HCPCS: 93010 ==

== ENCOUNTER → 2023-11-05 21:34 | Outpatient (BNV) | payer OTHER, SELFPAY | PROVIDERS: Admitting Provider Student in an Organized Health Care Education/Training Program; Emergency Provider Emergency Medicine; Visit Provider Student in an Organized Health Care Education/Training Program | DX: I10 Essential (primary) hypertension (principal); F39 Unspecified mood [affective] disorder; K92.0 Hematemesis; F10.939 Alcohol use, unspecified with withdrawal, unspecified | CPT/HCPCS: 99223; 99232; 99239 ==